=== PATIENT | male | born 1940 | race Caucasian/White ===

== ENCOUNTER 2018-01-08 12:24 | Inpatient (IN) | payer MEDICARE, BC ==
[~2018-01-08] VITALS: Ht 177.8 cm; Wt 92.7 kg
[2018-01-08] VITALS (9 sets, daily range): BP systolic 146–158; BP diastolic 50–56; PULSE 65–80; RESP 18; TEMP 96.1; O2SAT 94–100
[~2018-01-08 12:24] MED LIST: LIDOCAINE HCL 1% PF 5 ML SYRINGE OTHER ONE; PHENYLEPHRINE HCL 10 MG/ML VIAL IV ONE; PROPOFOL 200 MG/20 ML AMP IV ONE; VECURONIUM BROMIDE 20 MG VIAL IV ONE
[2018-01-08 12:43] LABS: AUTOMATED NEUTROPHIL # 9.2 TH/MM3 (1.8-7.7); BASOPHIL # 0.1 TH/MM3 (0-0.2); BASOPHIL % 0.6 % (0.0-2.0); EOSINOPHIL # 0.1 TH/MM3 (0-0.4); EOSINOPHIL % 1.1 % (0.0-4.0); HEMOGLOBIN 10.5 GM/DL (13.0-17.0); LYMPH % 7.8 % (9.0-44.0); LYMPHOCYTE # 0.9 TH/MM3 (1.0-4.8); MEAN CELL VOLUME 82.1 FL (80.0-100.0); MEAN CORPUSCULAR HEMOGLOBIN 26.9 PG (27.0-34.0); MEAN CORPUSCULAR HGB CONC 32.8 % (32.0-36.0); MEAN PLATELET VOLUME 9.3 FL (7.0-11.0); MONO % 7.1 % (0.0-8.0); MONOCYTE # 0.8 TH/MM3 (0-0.9); NEUT % 83.4 % (16.0-70.0); PLATELET COUNT 64 TH/MM3 (150-450); RED CELL DISTRIBUTION WIDTH 14.7 % (11.6-17.2)
[2018-01-08] MEDS ORDERED: MANNITOL INJ 100 ML ONE (12:44)
[2018-01-08] MEDS ORDERED: MANNITOL 12.5 GM/50 ML VIAL IV ONE ×2 (12:45→16:30)
[2018-01-08] MEDS ORDERED: SODIUM CHLOR 0.9% 1000 ML INJ 1,000 ML IV SCH (12:47)
--- NOTE | 2018-01-08 12:52 | RADRPT ---
EXAM DATE/TIME: 01/08/2018 12:26 [facility] COMPARISON: No previous studies available for comparison. INDICATIONS : Trauma alert. Fall. MEDICAL HISTORY : Unobtainable. SURGICAL HISTORY : Unobtainable. ENCOUNTER: Initial ACUITY: 1 day PAIN SCORE: Non-responsive. LOCATION: Bilateral chest FINDINGS: Patchy consolidation seen of both lungs, most dense at the right base. There is right-sided volume lo ss. A small right pleural effusion is likely. I don't see a pneumothorax on either side. There is mild cardiomegaly. Endotracheal tube tip is approximately 4 cm above the erik. No perceptible acute fracture. There is an old mid shaft fracture of the left clavicle. CONCLUSION: Bilateral infiltrates. Right-sided volume loss. Small pleural effusion on the right. No pneumothorax seen. Orlando Bradley MD on January 08, 2018 at 12:50 Board Certified Radiologist. This report was verified electronically.
[2018-01-08 12:55] LABS: INTERNATIONAL NORMALIZED RATIO 2.4 RATIO; PROTHROMBIN TIME - PATIENT 24.4 SEC (9.8-11.6)
[2018-01-08] MEDS ORDERED: THROMBIN (TOPICAL) 5,000 UNIT VIAL ONE (12:55)
[2018-01-08] MEDS ORDERED: ceFAZolin INJ 1,000 MG VIAL ONE (12:55)
[2018-01-08] MEDS ORDERED: LIDOCAINE 1%/EPINEPHrine 1:100,000 SOLN 30 ML VIAL ONE (12:55)
[2018-01-08] MEDS ORDERED: levETIRAcetam 500 MG/5 ML VIAL IV ONE (12:56)
[2018-01-08] MEDS ORDERED: GELFOAM SIZE 100 ONE (12:56)
[2018-01-08] MEDS ORDERED: GENTAMICIN SULFATE 80 MG/2 ML VIAL ONE (12:59)
[2018-01-08] MEDS ORDERED: MISCELLANEOUS NURSING INFORMATION XX SCH (13:00)
[2018-01-08] MEDS ORDERED: PROPOFOL 1000 MG/100 ML INJ 100 ML IV PRN (13:00)
[2018-01-08] MEDS ORDERED: ENALAPRILAT 1.25 MG/ML VIAL IV PUSH PRN (13:00)
[2018-01-08] MEDS ORDERED: SODIUM CHLORIDE 0.9% FLUSH 10 ML FLUSH IV FLUSH PRN (13:00)
[2018-01-08] MEDS ORDERED: MAGNESIUM HYDROXIDE SUSP 30 ML CUP PO PRN (13:00)
[2018-01-08] MEDS ORDERED: CHLORHEXIDINE GLUCONATE 2 % 1 PACK (2 CLOTHS) TOP PRN (13:00)
[2018-01-08] MEDS ORDERED: ONDANSETRON HCL 4 MG/2 ML VIAL IV PUSH PRN ×2 (13:00→14:30)
--- NOTE | 2018-01-08 13:02 | HHI.HP ---
HPI Service Critical Care Medicine Primary Care Physician Unknown Admission Diagnosis intracranial bleed Diagnosis: Chief Complaint: Unresponsive Travel History International Travel<30 Days: No Contact w/Intl Traveler <30 Da: No Traveled to Known Affected Are: No History of Present Illness 70-year-old gentleman who has some sort of cancer history was found wandering the house for a few hours by his . She said earlier in the morning he told her he could not walk the dog because he had fallen so he went in to lie down. She called 911 when he went to bed and did not wake up. On arrival per EMS he was agonal breathing they intubated him and took him to [facility]. At [facility] they saw a left periorbital hematoma, called a trauma alert and sent him to [place]. Patient arrived immobilized on a transport board with cervical collar in place he was intubated with a [place] Coma Scale of 3T on propofol. Review of Systems ROS Limitations: Intubated Past Family Social History Allergies: Coded Allergies: No Allergy Information Available (Unverified , 01/08/18) Past Medical History Unobtainable due to the patient's condition. 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 Past Surgical History Unobtainable due to the patient's condition. According to EMS the is a very poor historian. Reported Medications Unobtainable due to the patient's condition. According to EMS the is a very poor historian but states he does take blood thinners. Family History Unobtainable due to the patient's condition. Social History Unobtainable due to the patient's condition. Physical Exam Physical Exam Well proportioned 70-year-old gentleman intubated and sedated with a [place] Coma Scale of 3T on 20 of propofol Calvarium is intact, left periorbital ecchymosis pupils are equal bilaterally at 2 mm sclera is nonicteric conjunctiva is pink Neck is soft trachea is midline there is no cervical step-off to palpation Lungs are clear to auscultation bilaterally, no bony crepitus to palpation of his chest wall or clavicles Heart regular rate and rhythm Abdomen soft, nontender nondistended Pelvis stable to manipulation, nontender, femoral pulses palpable bilaterally No clubbing cyanosis or edema distal pulses are palpable bilaterally Skin has various levels of ecchymotic areas, mostly old appearing Neurologically the patient is a [place] Coma Scale of 3T Mood and affect are unassessable Laboratory Laboratory Tests Test 01/08/18 12:30 White Blood Count 11.0 Red Blood Count 3.90 Hemoglobin 10.5 Bedside Hemoglobin 10.9 Hematocrit 32.0 Bedside Hematocrit 32.0 Mean Corpuscular Volume 82.1 Mean Corpuscular Hemoglobin 26.9 Mean Corpuscular Hemoglobin Concent 32.8 Red Cell Distribution Width 14.7 Platelet Count 64 Mean Platelet Volume 9.3 Neutrophils (%) (Auto) 83.4 Lymphocytes (%) (Auto) 7.8 Monocytes (%) (Auto) 7.1 Eosinophils (%) (Auto) 1.1 Basophils (%) (Auto) 0.6 Neutrophils # (Auto) 9.2 Lymphocytes # (Auto) 0.9 Monocytes # (Auto) 0.8 Eosinophils # (Auto) 0.1 Basophils # (Auto) 0.1 CBC Comment AUTO DIFF Prothrombin Time 24.4 Prothromb Time International Ratio 2.4 Activated Partial Thromboplast Time 42.9 Bedside Sodium 137 Bedside Potassium 4.3 Bedside Chloride 103 Bedside Blood Urea Nitrogen 25 Bedside Creatinine 1.2 Bedside Glucose 246 Result Diagram: 01/08/18 1230 Caprini VTE Risk Assessment Caprini VTE Risk Assessment: Mod/High Risk (score >= 2) VTE Pharm Contraindication: Hemorrhage Caprini Risk Assessment Model Point Value = 1 Point Value = 2 Point Value = 3 Point Value = 5 Age 41-60 Minor surgery BMI > 25 kg/m2 Swollen legs Varicose veins or History of unexplained or recurrent spontaneous Oral contraceptives or hormone replacement Sepsis (< 1 month) Serious lung disease, including pneumonia (< 1 month) Abnormal pulmonary function Acute myocardial infarction Congestive heart failure (< 1 month) History of inflammatory bowel disease Medical patient at bed rest Age 61-74 Arthroscopic surgery Major open surgery (> 45 min) Laparoscopic surgery (> 45 min) Malignancy Confined to bed (> 72 hours) Immobilizing plaster cast Central venous access Age >= 75 History of VTE Family history of VTE Factor V Leiden Prothrombin [id number] Lupus anticoagulant Anticardiolipin antibodies Elevated serum homocysteine Heparin-induced thrombocytopenia Other congenital or acquired thrombophilia Stroke (< 1 month) Elective arthroplasty Hip, pelvis, or leg fracture Acute spinal cord injury (< 1 month) Prophylaxis Regimen Total Risk Factor Score Risk Level Prophylaxis Regimen 0-1 Low Early ambulation 2 Moderate Order ONE of the following: *Sequential Compression Device (SCD) *Heparin 5000 units SQ BID 3-4 Higher Order ONE of the following medications: *Heparin 5000 units SQ TID *Enoxaparin/Lovenox 40 mg SQ daily (WT < 150 kg, CrCl > 30 mL/min) *Enoxaparin/Lovenox 30 mg SQ daily (WT < 150 kg, CrCl > 10-29 mL/min) *Enoxaparin/Lovenox 30 mg SQ BID (WT < 150 kg, CrCl > 30 mL/min) AND/OR *Sequential Compression Device (SCD) 5 or more Highest Order ONE of the following medications: *Heparin 5000 units SQ TID (Preferred with Epidurals) *Enoxaparin/Lovenox 40 mg SQ daily (WT < 150 kg, CrCl > 30 mL/min) *Enoxaparin/Lovenox 30 mg SQ daily (WT < 150 kg, CrCl > 10-29 mL/min) *Enoxaparin/Lovenox 30 mg SQ BID (WT < 150 kg, CrCl > 30 mL/min) AND *Sequential Compression Device (SCD) Assessment and Plan Assessment and Plan Large left occipital hemorrhagic stroke followed by a subsequent apparent traumatic left subdural hematoma -Patient be admitted to the trauma service for serial neurologic exams and continuous hemodynamic monitoring after surgery -Dr. Rivera was present in CT and is taking the patient emergently to the operating room -We will consult the surgical solderer electronic to assist with management Patient is critically ill with a very poor prognosis for meaningful recovery based on his CT scan and his unknown anticoagulation status Ike Ruiz MD Jan 08, 2018 13:02
[2018-01-08] MEDS ORDERED: PHYTONADIONE INJ 10 MG in SODIUM CHLORIDE 0.9% INJ 50 ML IV ONE (13:15)
[2018-01-08 13:24] LABS: HELMET CELLS OCC (NORMAL); KERATOCYTES OCC (NORMAL); OVALOCYTES 1+ (NORMAL)
[2018-01-08] MEDS ORDERED: PROTHROMBIN COMPLEX CONC INJ 2,000 UNITS in SYRINGE/BAG 1 EA IV ONE (13:30)
--- NOTE | 2018-01-08 13:31 | RADRPT ---
EXAM DATE/TIME: 01/08/2018 12:34 [facility] COMPARISON: No previous studies available for comparison. INDICATIONS : Trauma Alert, fall. RADIATION DOSE: 66.34 CTDIvol (mGy) MEDICAL HISTORY : Non-responsive. SURGICAL HISTORY : Non-responsive. ENCOUNTER: Initial ACUITY: 1 day PAIN SCALE: 10/10 LOCATION: cranial TECHNIQUE: Multiple contiguous axial images were obtained of the head. Using automated exposure control and adj ustment of the mA and/or kV according to patient size, radiation dose was kept as low as reasonably a chievable to obtain optimal diagnostic quality images. DICOM format image data is available electro nically for review and comparison. FINDINGS: The examination demonstrates a 1.5 cm extra-axial hemorrhage surrounding the left frontal and parieta l cortex. There is significant mass effect associated with this with approximately 7 mm of left to ri ght falcine shift. There is a small amount hemorrhage layering along the interhemispheric fissure and just anterior to the right frontal cortex. There is diffuse edema throughout the left cerebral hemis phere with effacement of the sulci and gyri. The examination also demonstrates a 4.0 x 2.4 cm area of intraparenchymal hemorrhage within the left occipital cortex. Imaging through the posterior fossa demonstrates hemorrhage layering along the tentorium. There are e dematous changes throughout the cerebellum. The examination demonstrates effacement of the perimesencephalic cisterns with transtentorial herniat ion on the left. The osseous structures of the skull are intact. There is a large hematoma above the left orbit. CONCLUSION: 1. Grossly abnormal examination demonstrating a 4.0 x 2.4 cm interparenchymal hemorrhage within the l eft the occipital cortex. There is a 1.5 cm subdural hemorrhage along the entire left hemisphere. The re is 7 mm of left to right falcine shift and diffuse edema throughout the left hemisphere as well. T here is effacement of the perimesencephalic cisterns consistent with transtentorial herniation. There are edematous changes evident within the cerebellum and brainstem. Findings were discussed with Dr. Thornton. Maxi Ann MD on January 08, 2018 at 13:18 Board Certified Radiologist. This report was verified electronically.
--- NOTE | 2018-01-08 13:32 | PD.CONS ---
[facility] Service Neurosurgery Consult Requested By Trauma surgeon Reason for Consult Trauma alert. Severe traumatic brain injury Primary Care Physician Unknown History of Present Illness This is a 70-year-old male who has history of cancer with bone matastases, history was found wandering the house confused, by his . She said earlier in the morning he told her he could not walk the dog because he had fallen so he went in to lie down. The patient was sleeping and became unresponsive. She was unable to wake him up. She called 911 when he did not wake up. On arrival per EMS he had agonal breathing they intubated him in the field. No seizure activity reported. No tongue biting. No tonic-clonic movement seen. No incontinence of stool or urine. They transported him immediately to [facility]. At [facility] they saw a left periorbital hematoma, called a trauma alert and sent him to [place]. Patient arrived immobilized on a transport board with cervical collar in place he was intubated with a [place] Coma Scale of 3T on propofol. CT of the brain showed large left subdural hematoma, left occipital intraparenchymal hemorrhage with 7 mm midline shift. The patient was coagulopathic, with an INR of 2.5, and a platelet count of 60,000. An emergency neurosurgical consultation was requested Caprini VTE Risk Assessment Caprini VTE Risk Assessment: Mod/High Risk (score >= 2) VTE Pharm Contraindication: Hemorrhage Caprini Risk Assessment Model Point Value = 1 Point Value = 2 Point Value = 3 Point Value = 5 Age 41-60 Minor surgery BMI > 25 kg/m2 Swollen legs Varicose veins or History of unexplained or recurrent spontaneous Oral contraceptives or hormone replacement Sepsis (< 1 month) Serious lung disease, including pneumonia (< 1 month) Abnormal pulmonary function Acute myocardial infarction Congestive heart failure (< 1 month) History of inflammatory bowel disease Medical patient at bed rest Age 61-74 Arthroscopic surgery Major open surgery (> 45 min) Laparoscopic surgery (> 45 min) Malignancy Confined to bed (> 72 hours) Immobilizing plaster cast Central venous access Age >= 75 History of VTE Family history of VTE Factor V Leiden Prothrombin [id number] Lupus anticoagulant Anticardiolipin antibodies Elevated serum homocysteine Heparin-induced thrombocytopenia Other congenital or acquired thrombophilia Stroke (< 1 month) Elective arthroplasty Hip, pelvis, or leg fracture Acute spinal cord injury (< 1 month) Prophylaxis Regimen Total Risk Factor Score Risk Level Prophylaxis Regimen 0-1 Low Early ambulation 2 Moderate Order ONE of the following: *Sequential Compression Device (SCD) *Heparin 5000 units SQ BID 3-4 Higher Order ONE of the following medications: *Heparin 5000 units SQ TID *Enoxaparin/Lovenox 40 mg SQ daily (WT < 150 kg, CrCl > 30 mL/min) *Enoxaparin/Lovenox 30 mg SQ daily (WT < 150 kg, CrCl > 10-29 mL/min) *Enoxaparin/Lovenox 30 mg SQ BID (WT < 150 kg, CrCl > 30 mL/min) AND/OR *Sequential Compression Device (SCD) 5 or more Highest Order ONE of the following medications: *Heparin 5000 units SQ TID (Preferred with Epidurals) *Enoxaparin/Lovenox 40 mg SQ daily (WT < 150 kg, CrCl > 30 mL/min) *Enoxaparin/Lovenox 30 mg SQ daily (WT < 150 kg, CrCl > 10-29 mL/min) *Enoxaparin/Lovenox 30 mg SQ BID (WT < 150 kg, CrCl > 30 mL/min) AND *Sequential Compression Device (SCD) Assessment and Plan Assessment and Plan Large left occipital hemorrhagic stroke followed by a subsequent apparent traumatic left subdural hematoma -Patient be admitted to the trauma service for serial neurologic exams and continuous hemodynamic monitoring after surgery -Dr. Rivera was present in CT and is taking the patient emergently to the operating room -We will consult the surgical carbon paper machine operator to assist with management Patient is critically ill with a very poor prognosis for meaningful recovery based on his CT scan and his unknown anticoagulation status Review of Systems Unobtainable due to the patient's condition. ROS Limitations: Clinical Condition, Intubated, Altered Mental Status, Unresponsive Past Family Social History Allergies: Coded Allergies: No Allergy Information Available (Unverified , 01/08/18) Past Medical History Unobtainable due to the patient's condition. 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 Past Surgical History Unobtainable due to the patient's condition. Reported Medications Unobtainable due to the patient's condition. Active Ordered Medications Current Medications Mannitol (Mannitol Inj) 25 gm ONCE ONCE IV ; Start 01/08/18 at 12:45; Stop at 12:46; Status DC Mannitol 100 ml @ As Directed STK-MED ONCE .ROUTE ; Start 01/08/18 at 12:44; Stop 01/08/18 at 12:45; Status DC Sodium Chloride 1,000 ml @ 125 mls/hr Q8H IV ; Start 01/08/18 at 12:47; Stop 01/08/18 at 14:59; Status DC Sodium Chloride (NS Flush) 2 ml UNSCH PRN IV FLUSH FLUSH AFTER USING IV ACCESS ; Start 01/08/18 at 13:00; Stop 01/10/18 at 16:27; Status DC Enalaprilat (Vasotec Inj) 1.25 mg Q8H PRN IV PUSH SBP>180, DBP>95; Start at 13:00; Stop 01/10/18 at 16:27; Status DC Ondansetron HCl (Zofran Inj) 4 mg Q6H PRN IV PUSH NAUSEA OR VOMITING; Start 01/08/18 at 13:00; Stop 01/08/18 at 15:03; Status DC Docusate Sodium (Colace) 100 mg BID PO Last administered on 01/10/18at 08:57; Start 01/08/18 at 21:00; Stop 01/10/18 at 16:27; Status DC Magnesium Hydroxide (Milk Of Magnesia Liq) 30 ml Q6H PRN PO CONSTIPATION; Start 01/08/18 at 13:00; Stop 01/10/18 at 16:27; Status DC Miscellaneous Information 1 [id number] ; Start 01/08/18 at 13:00; Stop 01/10/18 at 16:27; Status DC Chlorhexidine Gluconate (Chlorhexidine 2% Cloth) 3 pack Taper DAILY@04 TOP ; Start 01/09/18 at 04:00; Stop 01/10/18 at 16:27; Status DC Chlorhexidine Gluconate (Chlorhexidine 2% Cloth) 3 pack UNSCH PRN TOP HYGIENIC CARE; Start 01/08/18 at 13:00; Stop 01/10/18 at 16:27; Status DC Propofol 100 ml @ 0 mls/hr TITRATE PRN IV SEDATION; Start 01/08/18 at 13:00; Stop 01/08/18 at 15:42; Status DC Fentanyl Citrate (fentaNYL INJ) 100 mcg Q1H PRN IV PUSH PAIN SCALE 1 TO 10; Start 01/08/18 at 13:00; Stop 01/10/18 at 16:27; Status DC Lidocaine/ Epinephrine (Xylocaine-Epi 1%-1:100,000 Inj) 30 ml STK-MED ONCE .ROUTE Last administered on 01/08/18 13:45; Start 01/08/18 at 12:55; Stop at 12:56; Status DC Cefazolin Sodium (Ancef Inj) 2,000 mg STK-MED ONCE .ROUTE Last administered on 01/08/18 13:16; Start 01/08/18 at 12:55; Stop 01/08/18 at 12:56; Status DC Thrombin (Thrombin Top Soln) 10,000 units STK-MED ONCE .ROUTE Last administered on 01/08/18 13:45; Start 01/08/18 at 12:55; Stop 01/08/18 at 12:56; Status DC Gelatin (Gelfoam 100 Top) 1 foam STK-MED ONCE .ROUTE Last administered on 13:45; Start 01/08/18 at 12:56; Stop 01/08/18 at 12:57; Status DC Levetriacetam (Keppra Inj) 1,000 mg STK-MED ONCE IV Last administered on 12:59; Start 01/08/18 at 12:56; Stop 01/08/18 at 12:57; Status DC Gentamicin Sulfate (Gentamicin Inj) 240 mg STK-MED ONCE .ROUTE Last administered on 01/08/18 13:45; Start 01/08/18 at 12:59; Stop 01/08/18 at 13:00; Status DC Phytonadione 10 mg/Sodium Chloride 51 ml @ 100 mls/hr ONCE ONCE IV ; Start 01/08/18 at 13:15; Stop 01/08/18 at 13:45; Status DC Prothrombin Complex Concent (Human) 2000 units/Syringe / Bag 0 ml @ 500 mls/hr ONCE ONCE IV ; Start 01/08/18 at 13:30; Stop 01/08/18 at 13:31; Status DC Calcium Chloride (Calcium Chloride Inj) 1 gm STK-MED ONCE .ROUTE ; Start at 14:10; Stop 01/08/18 at 14:11; Status DC Potassium Chloride/Sodium Chloride 1,000 ml @ 100 mls/hr Q10H IV Last administered on 01/09/18at 00:29; Start 01/08/18 at 14:29; Stop 01/09/18 at 09:44; Status DC Cefazolin Sodium 2000 mg/Sodium Chloride 100 ml @ 100 mls/hr Q8H IV Last administered on 01/09/18at 12:07; Start 01/08/18 at 21:00; Stop 01/09/18 at 13:59; Status DC Levetriacetam 500 mg/Sodium Chloride 105 ml @ 400 mls/hr Q12H IV Last administered on 01/10/18at 02:35; Start 01/08/18 at 15:00; Stop 01/10/18 at 16:27; Status DC Bisacodyl (Dulcolax Supp) 10 mg DAILY PRN RECTAL CONSTIPATION; Start 01/08/18 at 14:30; Stop 01/10/18 at 16:27; Status DC Docusate Sodium (Colace) 100 mg BID PO ; Start 01/08/18 at 21:00; Stop 01/08/18 at 21:00; Status DC Pantoprazole Sodium (Protonix) 40 mg DAILY PO Last administered on 01/09/18at 08: 13; Start 01/09/18 at 09:00; Stop 01/10/18 at 16:27; Status DC Pantoprazole Sodium (Protonix Inj) 40 mg DAILY IVP ; Start 01/09/18 at 09:00; Stop 01/09/18 at 09:00; Status DC Ondansetron HCl (Zofran Inj) 4 mg Q6H PRN IV PUSH NAUSEA OR VOMITING; Start 01/08/18 at 14:30; Stop 01/10/18 at 16:27; Status DC Calcium Gluconate (Calcium Gluconate Inj) 1 gm UNSCH PRN IV SEE LABEL COMMENTS ; Start 01/08/18 at 14:30; Stop 01/08/18 at 15:12; Status DC Potassium Chloride 100 ml @ 50 mls/hr UNSCH PRN IV POTASSIUM LESS THAN 4; Start 01/08/18 at 14:30; Stop 01/10/18 at 16:27; Status DC Magnesium Sulfate 4 gm/Sodium Chloride 108 ml @ 108 mls/hr UNSCH PRN IV MAGNESIUM LESS THAN 2; Start 01/08/18 at 14:30; Stop 01/10/18 at 16:27; Status DC Acetaminophen/ Hydrocodone Bitart ([place] 10-325 Mg) 1 tab Q4H PRN PO PAIN SCALE 1 TO 5; Start 01/08/18 at 14:30; Stop 01/10/18 at 16:27; Status DC Acetaminophen/ Hydrocodone Bitart (Culver 10-325 Mg) 2 tab Q4H PRN PO PAIN SCALE 6 TO 10; Start 01/08/18 at 14:30; Stop 01/10/18 at 16:27; Status DC Morphine Sulfate (Morphine Inj) 2 mg Q2H PRN IV PUSH PAIN 1-6 IF NOT TOLERATING PO; Start 01/08/18 at 14:30; Stop 01/10/18 at 16:27; Status DC Morphine Sulfate (Morphine Inj) 4 mg Q2H PRN IV PUSH PAIN 7-10 IF NOT TOLERATING PO; Start 01/08/18 at 14:30; Stop 01/10/18 at 16:27; Status DC Acetaminophen (Tylenol) 650 mg Q4H PRN PO TEMPERATURE > 101.5 F; Start 01/08/18 at 14:30; Stop 01/10/18 at 16:27; Status DC Calcium Gluconate 1 gm/Sodium Chloride 110 ml @ 110 mls/hr UNSCH PRN IV SEE LABEL COMMENTS; Start 01/08/18 at 15:15; Stop 01/10/18 at 16:27; Status DC Miscellaneous Information PHARMACY NEEDS HT/ WT... Q15M .XX ; Start 01/08/18 at 15:00; Stop 01/08/18 at 15:53; Status DC Propofol 100 ml @ As Directed STK-MED ONCE .ROUTE ; Start 01/08/18 at 15:28; Stop 01/08/18 at 15:42; Status DC Propofol 100 ml @ 2.52 mls/hr TITRATE PRN IV SEDATION Last administered on 01/10at 09:01; Start 01/08/18 at 15:45; Stop 01/10/18 at 16:27; Status DC Nicardipine HCl 25 mg/Sodium Chloride 250 ml @ 50 mls/hr TITRATE PRN IV Blood Pressure Management; Start 01/08/18 at 16:00; Stop 01/08/18 at 23:06; Status DC Nicardipine HCl (Cardene Inj) 25 mg STK-MED ONCE .ROUTE Last administered on 01/08/18at 15:49; Start 01/08/18 at 15:49; Stop 01/08/18 at 15:50; Status DC Miscellaneous Information ALL NURSING DEPARTME... UNSCH PRN .XX SEE LABEL COMMENTS; Start 01/08/18 at 15:25; Stop 01/09/18 at 15:24; Status DC Mannitol (Mannitol Inj) 25 gm NOW ONCE IV Last administered on 01/08/18at 16:30 ; Start 01/08/18 at 16:30; Stop 01/08/18 at 16:31; Status DC Sodium Chloride 500 ml @ 35 mls/hr CONTINUOUS IV Last administered on at 14:24; Start 01/08/18 at 16:30; Stop 01/10/18 at 10:22; Status DC Sodium Chloride 120 meq/Syringe / Bag 30 ml @ 60 mls/hr ONCE ONCE IV Last administered on 01/08/18at 20:33; Start 01/08/18 at 21:00; Stop 01/08/18 at 21:29; Status DC Fentanyl Citrate 250 ml @ 5 mls/hr TITRATE PRN IV Sedation; Start 01/08/18 at 20 :15; Stop 01/08/18 at 23:07; Status DC Pantoprazole Sodium (Protonix Inj) 40 mg DAILY IVP Last administered on at 08:57; Start 01/09/18 at 09:00; Stop 01/10/18 at 16:27; Status DC Mannitol (Mannitol Inj) 25 gm Q6H IV Last administered on 01/10/18at 05:13; Start 01/08/18 at 22:00; Stop 01/10/18 at 16:27; Status DC Nicardipine HCl 25 mg/Sodium Chloride 250 ml @ 50 mls/hr TITRATE PRN IV Blood pressure management; Start 01/08/18 at 21:15; Stop 01/10/18 at 16:27; Status DC Chlorhexidine Gluconate (Peridex 0.12% Liq) 15 ml BID@08,20 MT Last administered on 01/10/18at 08:33; Start 01/09/18 at 08:00; Stop 01/10/18 at 16:27; Status DC Sodium Chloride 500 ml @ 40 mls/hr UNSCH PRN IV ICP > 20 Last administered on 01/10/18at 02:37; Start 01/08/18 at 21:15; Stop 01/10/18 at 16:27; Status DC Fentanyl Citrate 250 ml @ 5 mls/hr TITRATE PRN IV Sedation Last administered on 01/10/18at 08:57; Start 01/08/18 at 21:15; Stop 01/10/18 at 16:27; Status DC Norepinephrine Bitartrate (Levophed Inj) 4 mg STK-MED ONCE .ROUTE ; Start at 22:29; Stop 01/08/18 at 22:30; Status DC Norepinephrine Bitartrate 4 mg/ Sodium Chloride 250 ml @ 7.5 mls/hr TITRATE PRN IV Maintain CPP > 70 mmHg Last administered on 01/10/18at 13:54; Start at 23:15; Stop 01/10/18 at 16:27; Status DC Atropine Sulfate (Atropine Inj) 1 mg STK-MED ONCE .ROUTE ; Start 01/09/18 at 08: 19; Stop 01/09/18 at 08:20; Status DC Albumin Human 500 ml @ 250 mls/hr ONCE ONCE IV Last administered on 01/10/18at 05:12; Start 01/10/18 at 05:15; Stop 01/10/18 at 07:14; Status DC Family History Unobtainable due to the patient's condition. Social History Unobtainable due to the patient's condition. Physical Exam Vital Signs Vital Signs Date Time Temp Pulse Resp B/P (MAP) Pulse Ox O2 Delivery O2 Flow Rate FiO2 01/08/18 13:10 94 100 01/08/18 13:08 94 100 01/08/18 13:07 94 15.00 Physical Exam Well proportioned 70-year-old gentleman intubated and sedated with a [place] Coma Scale of 3T on propofol drip There is left periorbital ecchymosis Neck is soft trachea is midline there is no cervical step-off to palpation Lungs are clear bilaterally Heart regular rate and rhythm Abdomen soft, nontender nondistended Skin has various levels of ecchymotic areas, mostly old appearing Cranial Nerves: Pupils equal, 2mm round, minimally reactive to light. Eyes appear conjugated. There was no nystagmus, no papilledema. Face musculature appeared symmetrical at rest. Face sensation, olfaction, visual levine, and hearing cannot be adequately assessed due to his neurological condition. The patient has a corneal reflex. He has no gag reflex. The sternocleidomastoid and trapezius are symmetrical. Motor: His muscle tone and bulk are normal. No response to pain Reflexes: Deep tendon reflexes are symmetrical Sensory: On examination there is no response to pain. Cerebellar: Examination cannot be adequately assessed due to the patient's neurological condition. Laboratory Laboratory Tests Test 01/08/18 12:30 White Blood Count 11.0 Red Blood Count 3.90 Hemoglobin 10.5 Bedside Hemoglobin 10.9 Hematocrit 32.0 Bedside Hematocrit 32.0 Mean Corpuscular Volume 82.1 Mean Corpuscular Hemoglobin 26.9 Mean Corpuscular Hemoglobin Concent 32.8 Red Cell Distribution Width 14.7 Platelet Count 64 Mean Platelet Volume 9.3 Neutrophils (%) (Auto) 83.4 Lymphocytes (%) (Auto) 7.8 Monocytes (%) (Auto) 7.1 Eosinophils (%) (Auto) 1.1 Basophils (%) (Auto) 0.6 Neutrophils # (Auto) 9.2 Lymphocytes # (Auto) 0.9 Monocytes # (Auto) 0.8 Eosinophils # (Auto) 0.1 Basophils # (Auto) 0.1 CBC Comment AUTO DIFF Differential Comment AUTO DIFF CONFIRMED Platelet Estimate LOW Platelet Morphology Comment ENLARGED Ovalocytes 1+ Helmet Cells OCC Keratocytes OCC Prothrombin Time 24.4 Prothromb Time International Ratio 2.4 Activated Partial Thromboplast Time 42.9 Bedside Sodium 137 Bedside Potassium 4.3 Bedside Chloride 103 Bedside Blood Urea Nitrogen 25 Bedside Creatinine 1.2 Bedside Glucose 246 Result Diagram: 01/08/18 1230 Attending Statement 77-year-old male with large left occipetal intracerebral hemorrhage, ICH score 2 , with associated left subdural hemorrhage with 7mm midline shift and malignant cerebral edema. I reviewed his radiological studies Maxillofacial CT 4/5/18 1226 Signed Impressions: Service Date/Time: January 12:34 - CONCLUSION: 1. There is a large hematoma evident surrounding and involving the left orbit. 2. No acute facial fracture identified. Maxi Ann MD Head CT 01/08/181225 Signed Impressions: Service Date/Time: January 12:34 - CONCLUSION: 1. Grossly abnormal examination demonstrating a 4.0 x 2.4 cm interparenchymal hemorrhage within the left the occipital cortex. There is a 1.5 cm subdural hemorrhage along the entire left hemisphere. There is 7 mm of left to right falcine shift and diffuse edema throughout the left hemisphere as well. There is effacement of the perimesencephalic cisterns consistent with transtentorial herniation. There are edematous changes evident within the cerebellum and brainstem. Findings were discussed with Dr. Thornton. Maxi Ann MD Chest X-Ray 01/08/181225 Signed Impressions: Service Date/Time: January 12:26 - CONCLUSION: Bilateral infiltrates. Right-sided volume loss. Small pleural effusion on the right. No pneumothorax seen. Orlando Bradley MD Cervical Spine CT 01/08/181225 Signed Impressions: Service Date/Time: January 12:34 - CONCLUSION: 1. Degenerative changes throughout cervical spine as above. No acute cervical fracture identified. Maxi Ann MD The patient is acutely very critically ill. Severe traumatic brain injury, neuro checks in a serial fashion. An emergency decompressive craniectomy is indicated in attempt to save his life. A follow-up CT of the head will be obtained in 24-48 hours. Placement of an intracranial pressure monitor via ventriculostomy is indicated as recommended by the [place] [employer] of neurological surgeons. This patient is in a truly critical condition at risk for neurological deterioration. Hyperosmolar treatment with hyperosmotic solutions Keppra for seizure prophylaxis Monitor end tidal PCO2 Full mechanical ventilation. Aggressive pulmonary toilette, nasotracheal suction , and breathing treatments with nebulizers. Nutrition. NPO Renal. monitor closely urine output, BUN and creatinine [place] in place. Monitor intake and output. Monitor electrolyte. Replace electrolytes as indicate per ICU electrolyte replacement protocol. HEME: Monitor CBC ENDO: Acute hyperglycemia Monitor glucose every 6 hours and administer low-dose insulin sliding scale as needed Again, this patient is critically ill with severe TBI requiring emergent therapy for intracerebral hypertension to prevent herniation, DVT prophylaxis Point Value = 1 Point Value = 2 Point Value = 3 Point Value = 5 Age 41-60 Minor surgery BMI > 25 kg/m2 Swollen legs Varicose veins or History of unexplained or recurrent spontaneous Oral contraceptives or hormone replacement Sepsis (< 1 month) Serious lung disease, including pneumonia (< 1 month) Abnormal pulmonary function Acute myocardial infarction Congestive heart failure (< 1 month) History of inflammatory bowel disease Medical patient at bed rest Age 61-74 Arthroscopic surgery Major open surgery (> 45 min) Laparoscopic surgery (> 45 min) Malignancy Confined to bed (> 72 hours) Immobilizing plaster cast Central venous access Age >= 75 History of VTE Family history of VTE Factor V Leiden Prothrombin [id number] Lupus anticoagulant Anticardiolipin antibodies Elevated serum homocysteine Heparin-induced thrombocytopenia Other congenital or acquired thrombophilia Stroke (< 1 month) Elective arthroplasty Hip, pelvis, or leg fracture Acute spinal cord injury (< 1 month) Quirino corral and SCD's for DVT prophylaxis. Further recommendations will depend on his clinical evaluation and radiological studies Yash Rivera MD Jan 08, 2018 13:32
--- NOTE | 2018-01-08 13:33 | RADRPT ---
EXAM DATE/TIME: 01/08/2018 12:34 [place] COMPARISON: CT BRAIN W/O CONTRAST, January 08, 2018, 12:34. INDICATIONS : Trauma Alert, fall. RADIATION DOSE: 20.96 CTDIvol (mGy) MEDICAL HISTORY : Non-responsive. SURGICAL HISTORY : Non-responsive. ENCOUNTER: Initial ACUITY: 1 day PAIN SCALE: Non-responsive LOCATION: neck TECHNIQUE: Volumetric scanning of the cervical spine was performed. Multiplanar reconstructions in the sagittal, coronal and oblique axial planes were performed. Using automated exposure control and adjustment o f the mA and/or kV according to patient size, radiation dose was kept as low as reasonably achievable to obtain optimal diagnostic quality images. DICOM format image data is available electronically f or review and comparison. FINDINGS: Thin section axial imaging of the cervical spine was performed. Sagittal and coronal imaging demonstrate adequate alignment of the vertebral bodies. There are degene rative changes throughout the cervical spine. No acute fracture is identified. C1/2: No acute bony abnormality identified. C2/3: There is a degenerated disc and mild facet arthritis bilaterally. There is mild bony foraminal narrow ing on the left. The foramen on the right in the thecal space are adequate. C3/4: There is a degenerated disc. There is osteophytic ridging from the vertebral endplates. There is mild facet arthritis bilaterally. The thecal space and foramina appear adequate. C4/5: There is a degenerated disc. There is osteophytic ridging from the vertebral endplates. The thecal sp evans and foramina are adequate. C5/6: There is a degenerated disc. There is a broad-based disc bulge and osteophytic ridging. This effaces the ventral thecal sac. There is moderate facet arthritis bilaterally. These changes result in modera te degree of spinal stenosis and bony foraminal narrowing bilaterally. C6/7: There is a degenerated disc. There is a small broad-based disc bulge and osteophytic ridging. The the jose space and foramina appear adequate. Mild facet arthritis bilaterally. C7/T1: The thecal space is adequate. The neural foramina are adequate. No significant abnormality is identif ied. There is mild facet arthritis bilaterally. CONCLUSION: 1. Degenerative changes throughout cervical spine as above. No acute cervical fracture identified. Maxi Ann MD on January 08, 2018 at 13:28 Board Certified Radiologist. This report was verified electronically.
--- NOTE | 2018-01-08 13:35 | PD ---
HPI Chief Complaint: Trauma (Alert) Time Seen by Provider: 12:43 Travel History International Travel<30 days: No Contact w/Intl Traveler<30days: No Traveled to known affect area: No History of Present Illness HPI 30-bes-zqfz-old male presents after his found him not acting right and then later found him in bed unresponsive. The ambulance team arrived and he was intubated. He had unequal pupils. They transferred him to [facility] and there he became a trauma alert and was sent emergently here. Report is that he is on blood thinners but unknown what type. He was not given any paralytics prior to arrival. History is significantly limited given clinical acuity and no family present on initial presentation. [facility] Past Medical History Medical History: Unable to Obtain Past Surgical History Surgical History: Unable to Obtain Allergies-Medications (Allergen,Severity, Reaction): Coded Allergies: No Allergy Information Available (Unverified , 01/08/18) Review of Systems ROS Limitations: Clinical Condition Physical Exam Exam Limitations: Clinical Condition Narrative General: 70 y/o patient who is intubated Skin: trauma noted to left eye with ecchymosis and swelling Eyes: Pupils 1 mm NECK: c-collar in place Cardiovascular: Regular rate and rhythm Respiratory: Clear at apices Abdomen: nondistended Neuro: Intubated and sedated Data Data Orders Orders I-Stat Profile (01/08/18 12:26) Complete Blood Count With Diff (01/08/18 12:26) Prothrombin Time / Inr (Pt) (01/08/18 12:26) Act Partial Throm Time (Ptt) (01/08/18 12:26) Type And Screen (01/08/18 12:26) Chest, Single Ap (01/08/18 12:26) Ct Brain W/O Iv Contrast(Rout) (01/08/18 12:26) Ct Cerv Spine W/O Contrast (01/08/18 12:26) Ct Facial Bones W/O Iv Cont (01/08/18 12:26) Iv Access Insert/Monitor (01/08/18 12:26) Ecg Monitoring (01/08/18 12:26) Oximetry (01/08/18 12:26) Oxygen Administration (01/08/18 12:26) Admit Order (Ed Use Only) (01/08/18 12:43) Mannitol Inj (Mannitol Inj) (01/08/18 12:45) Consult Neurosurgery (01/08/18 ) Mannitol Inj (Mannitol Inj) (01/08/18 12:44) Labs Laboratory Tests Test 01/08/18 12:30 White Blood Count 11.0 TH/MM3 Red Blood Count 3.90 MIL/MM3 Hemoglobin 10.5 GM/DL Bedside Hemoglobin 10.9 G/DL Hematocrit 32.0 % Bedside Hematocrit 32.0 % Mean Corpuscular Volume 82.1 FL Mean Corpuscular Hemoglobin 26.9 PG Mean Corpuscular Hemoglobin Concent 32.8 % Red Cell Distribution Width 14.7 % Platelet Count 64 TH/MM3 Mean Platelet Volume 9.3 FL Neutrophils (%) (Auto) 83.4 % Lymphocytes (%) (Auto) 7.8 % Monocytes (%) (Auto) 7.1 % Eosinophils (%) (Auto) 1.1 % Basophils (%) (Auto) 0.6 % Neutrophils # (Auto) 9.2 TH/MM3 Lymphocytes # (Auto) 0.9 TH/MM3 Monocytes # (Auto) 0.8 TH/MM3 Eosinophils # (Auto) 0.1 TH/MM3 Basophils # (Auto) 0.1 TH/MM3 CBC Comment AUTO DIFF Differential Comment AUTO DIFF CONFIRMED Platelet Estimate LOW Platelet Morphology Comment ENLARGED Ovalocytes 1+ Helmet Cells OCC Keratocytes OCC Prothrombin Time 24.4 SEC Prothromb Time International Ratio 2.4 RATIO Activated Partial Thromboplast Time 42.9 SEC Bedside Sodium 137 MMOL/L Bedside Potassium 4.3 MMOL/L Bedside Chloride 103 MMOL/L Bedside Blood Urea Nitrogen 25 MG/DL Bedside Creatinine 1.2 MG/DL Bedside Glucose 246 MG/DL [facility] Medical Screen Exam Complete: Yes Emergency Medical Condition: Yes Medical Record Reviewed: Yes (Discussed with EMS) Interpretation(s) CBC & BMP Diagram 01/08/18 12:30 Last 24 hours Impressions Chest X-Ray 01/08/18 1226 Signed Impressions: Service Date/Time: January 12:26 - CONCLUSION: Bilateral infiltrates. Right-sided volume loss. Small pleural effusion on the right. No pneumothorax seen. Orlando Bradley MD The chest x-ray noted IV fluids were stopped. After operating room patient will need antibiotics for possible aspiration pneumonia CT brain prelim shows large bleed with shift which was discussed with Dr. Rivera Differential Diagnosis Epidural, subdural, intraparenchymal bleed, herniation, fracture Narrative Course Patient arrived as a level 1 trauma alert. Patient is intubated. Patient with stable vitals. Patient emergently taken to CT scan and has large bleed with shift with concerns for herniation. Dr. Rivera was called and came to bedside. Mannitol ordered and he went emergently to the OR. INR resulted at 2.4. K Centra ordered and discussed with anesthesiology team While patient was in the OR. Critical Care Narrative Aggregate critical care time was 45 minutes. Time to perform other separately billable procedures was not included in the critical care time. My time did not include minutes spent treating any other patients simultaneously or on activities that did not directly contribute to the patient's treatment. The services I provided to this patient were to treat and/or prevent clinically significant deterioration that could result in: Herniation, I provided critical care services requiring my management, as noted below: Chart data review, documentation time, medication orders and management, vital sign assessments/reviewing monitor data, ordering and reviewing lab tests, ordering and interpreting/reviewing x-rays and diagnostic studies, care of the patient and discussion of the patient with the admitting physicians. Trauma Alert - Level One Trauma Alert Level One: Full trauma team activate Physician Communication Dr. Ruiz aware patient as received report from Ellie and will follow along dr rivera came to ct and took patient emergently to OR, agrees to mannitol Diagnosis Diagnosis: Primary Impression: Intracranial bleed Additional Impression: Fall Qualified Codes: W19.XXXA - Unspecified fall, initial encounter Admitting Physician Requests: Admit Nisha Thornton MD Jan 08, 2018 13:35
--- NOTE | 2018-01-08 13:36 | RADRPT ---
EXAM DATE/TIME: 01/08/2018 12:34 [facility] COMPARISON: CT BRAIN W/O CONTRAST, January 08, 2018, 12:34. INDICATIONS : Trauma Alert, fall. RADIATION DOSE: 21.96 CTDIvol (mGy) MEDICAL HISTORY : Non-responsive. SURGICAL HISTORY : Non-responsive. ENCOUNTER: Initial ACUITY: 1 day PAIN SCORE: Non-responsive LOCATION: facial TECHNIQUE: Volumetric scanning of the facial bones was performed. Using automated exposure control and adjustme nt of the mA and/or kV according to patient size, radiation dose was kept as low as reasonably achiev able to obtain optimal diagnostic quality images. DICOM format image data is available electronicYorder y for review and comparison. FINDINGS: ORBITS: The orbital and infraorbital osseous structures are intact. The retroconal structures have a normal configuration. No radiopaque foreign bodies are seen. NASAL BONE: The nasal bone and maxillary spine are intact ZYGOMATIC ARCHES: Symmetric without evidence of fracture. SINUSES: The maxillary, ethmoid and frontal sinuses are intact. No air-fluid levels seen. NASAL CAVITY: The nasal septum is intact and midline. The lacrimal ducts are intact. SOFT TISSUES: No radiopaque foreign bodies seen. There is soft tissue swelling a large hematoma centered around the left orbit. INTRACRANIAL: No intracranial air seen. CRIBIFORM PLATE: Grossly intact. CONCLUSION: 1. There is a large hematoma evident surrounding and involving the left orbit. 2. No acute facial fracture identified. Maxi Ann MD on January 08, 2018 at 13:31 Board Certified Radiologist. This report was verified electronically.
[2018-01-08] MEDS ORDERED: CALCIUM CHLORIDE 10% SOLN 1 GRAM/10 ML SYR ONE (14:10)
[2018-01-08] MEDS: NS + KCL 20 MEQ INJ 1,000 ML IV SCH (14:29)
[2018-01-08] MEDS ORDERED: POTASSIUM CHLOR 20 MEQ PREMIX 100 ML IV PRN (14:30)
[2018-01-08] MEDS ORDERED: ACETAMINOPHEN/HYDROcodone 325 MG/10 MG TAB PO PRN ×2 (14:30)
[2018-01-08] MEDS ORDERED: MORPHINE SULFATE 4 MG/ML INJ IV PUSH PRN ×2 (14:30)
[2018-01-08] MEDS ORDERED: MAGNESIUM SULFATE INJ 4 GM in SODIUM CHLORIDE 0.9% INJ 100 ML IV PRN (14:30)
[2018-01-08] MEDS ORDERED: ACETAMINOPHEN 325 MG TAB PO PRN (14:30)
[2018-01-08] MEDS ORDERED: CALCIUM GLUCONATE 10% 1 GM/10 ML VIAL IV PRN (14:30)
[2018-01-08] MEDS ORDERED: BISACODYL 10 MG SUPP RECTAL PRN (14:30)
--- NOTE | 2018-01-08 14:32 | PD.OP ---
Operative Report Date of Surgery: Jan 08, 2018 Preoperative Diagnosis: Severe traumatic brain injury Postoperative Diagnosis: Severe traumatic brain injury Procedure: CRANIOTOME. Left frontal Colbert hole with placement of a ventriculostomy catheter Anesthesia: local Surgeon: Yash Rivera Electronic Engineering Technician(s): LIZETT Operation and Findings: INDICATIONS FOR THE PROCEDURE The patient is an adult male who was brought to [facility] as a trauma alert with a severe traumatic brain injury CT of the brain showed a large acute subdural hematoma with mass effect and midline shift Placement of a venriculostomy catheter was indicated as recommended by the Trauma Commitee of [employer] DETAILS OF THE SURGICAL PROCEDURE The frontal area was shaved, prepped and draped in the usual sterile fashion. An entry point was selected 90 millimeters posterior to the supraorbital rim and 25 millimeters from the midline. The area was infiltrated with 1% lidocaine with epinephrine. A skin incision was made with a #15 blade down to the level of the periosteum. Using the TPS senior sales administrator with the CRANIOTOME attachment, a raghav hole was made. The dura was carefully opened with a brain needle and a ventriculostomy catheter was advanced into the ventricular system. At a depth of 60 millimeters, cerebrospinal fluid was obtained. Opening pressure was 12 centimeters of water. A specimen of cerebrospinal fluid was collected and sent to the lab for analysis of the glucose, protein, cell count and cultures. The catheter was then tunneled under the galea and externalized through a separate stab incision. The incision was closed with 3-0 Vicryl for the galea, and amando on the skin. The patient tolerated the procedure well. COMPLICATIONS There were no intraoperative complications. BLOOD LOSS Blood loss was minimal. Yash Rivera MD Jan 08, 2018 14:32
--- NOTE | 2018-01-08 14:32 | PD.OP ---
Operative Report Date of Surgery: Jan 08, 2018 Preoperative Diagnosis: Trauma alert. Severe traumatic brain injury Postoperative Diagnosis: Trauma alert. Severe traumatic brain injury Procedure: Left frontotemporoparietal decompressive craniectomy, evacuation of subdural hematoma. Debridement of left temporal brain contusion Anesthesia: general endotracheal Surgeon: Yash Rivera Slate Splitter(s): Teresa Mccabe Operation and Findings: INDICATIONS FOR THE PROCEDURE The patient is an adult male who was brought to [facility] as a trauma alert with a severe traumatic brain injury CT of the brain showed an acute left occipital and subdural hematoma with mass effect and midline shift A surgical decompression was indicated as recommended by the Trauma Commitee of [employer] in an attempt to save the patient 's life DETAILS OF THE SURGICAL PROCEDURE The patient was endotracheally intubated and mechanically ventilated. A Copeland catheter, bilateral DEBORAH hose and sequential compression devices were placed and kept throughout the procedure. The patient was positioned supine on a 3080 table over a soft mattress. The eyes were tapped shut after ointment was applied by the anesthesiologist to prevent corneal abrasion. A Yuri hugger was placed over the exposed lower body to maintain control of the core body temperature. The head was placed on a gel doughnut. All pressure points were carefully padded with egg crate mattress. The left frontotemporal parietal area was shaved, prepped and draped in the usual sterile fashion. A standard inverted question karl incision was outlined on the scalp and infiltrated with 1% lidocaine with epinephrine. The skin incision was made with a #10 blade down to the level of the periosteum in the left frontoparietal region and to the temporalis fascia in the temporal region. Meron clips were applied to the scalp. Using a Bovie, the temporalis fascia and muscle were incised and a subperiosteal dissection was performed reflecting the scalp flap anteriorly. The scalp was covered with a moist sponge and held in position using fish hooks. The TPS drill was brought to the field and a bur hole was made in the parietal temporal region using the craniotome attachment. Then, using the footplate attachment, a large frontotemporoparietal craniotomy flap was elevated. The dura was bulging, very tense with severe pressure and an underlying dark coloration related to the acute subdural hematoma. The dura was opened with a 15 blade and metzembaun scissors and a large subdural hematoma was found, causing significant mass effect. The hematoma was evacuated by gentle irrigation and sent to the lab for histologic analysis. The bleeding was controlled using the bipolar manager category. Then the incision was irrigated with saline solution. The dural edges were tacked to the bone. The dura was loosely reconstructed using Duragen. Given the significant brain edema, the craniotomy flap was not repositioned. A 10 millimeter Jaden-English drain was then left in the subgaleal space and externalized through a separate stab incision. The incision was then closed in layers. 0 Vicryl in interrupted sutures were used to close the temporalis fascia. The galea was closed with interrupted 3- 0 Vicryl. [place] were applied to the skin. The drain was secured with a 3-0 nylon. At the end of the procedure, the sponge, needle and instrument counts were all correct. Estimated blood loss was less than 250 cc. No blood transfusion was given. No intraoperative complications occurred. The patient received prophylactic antibiotics. The patient was then transferred to the recovery room in stable condition. Yash Rivera MD Jan 08, 2018 14:32
[2018-01-08] MEDS ORDERED: PHARMACY NEEDS HT/WT ENTERED SCH (15:00)
[2018-01-08] MEDS ORDERED: CALCIUM GLUCONATE INJ 1 GM in SODIUM CHLORIDE 0.9% INJ 100 ML IV PRN (15:15)
[2018-01-08] MEDS ORDERED: DO NOT ADM ANY ANTICOAGULANT DRUGS PRN (15:25)
[2018-01-08] MEDS ORDERED: PROPOFOL 1000 MG/100 ML INJ 100 ML ONE (15:28)
[2018-01-08] MEDS ORDERED: niCARdipine 25 MG/NS 250 ML Vial2Bag or IV room IV PRN ×2 (16:00)
[2018-01-08 16:28] LABS: MEAN CELL VOLUME 80.4 FL (80.0-100.0); MEAN CORPUSCULAR HEMOGLOBIN 26.8 PG (27.0-34.0); MEAN CORPUSCULAR HGB CONC 33.4 % (32.0-36.0); MEAN PLATELET VOLUME 7.4 FL (7.0-11.0); PLATELET COUNT 71 TH/MM3 (150-450); RED BLOOD COUNT 2.17 MIL/MM3 (4.50-5.90); RED CELL DISTRIBUTION WIDTH 14.3 % (11.6-17.2); WHITE BLOOD COUNT 7.2 TH/MM3 (4.0-11.0)
[2018-01-08] MEDS ORDERED: 3% SALINE INJ 500 ML IV SCH (16:30)
[2018-01-08 16:45] LABS: BICARBONATE 25.5 MEQ/L (21.0-32.0); CALCIUM 8.6 MG/DL (8.5-10.1); CREATININE 1.19 MG/DL (0.60-1.30)
[2018-01-08 16:56] LABS: HEMATOCRIT 17.5 % (39.0-51.0); HEMOGLOBIN 5.8 GM/DL (13.0-17.0)
[2018-01-08] MEDS: PROPOFOL 1000 MG/100 ML INJ 100 ML IV PRN ×3 (17:00→23:43)
[2018-01-08 17:29] LABS: CSF BASOPHILS 2 %; CSF EOSINOPHILS 1 %; CSF LYMPHOCYTES 13 %; CSF MONOCYTES 4 %; CSF NEUTROPHILS 80 %; RBC TUBE #1 251427 /MM3; SUPERNATE COLOR TUBE #1 HEMOLYZED (CLEAR); VOLUME TUBE # 1 2.5 ML; WBC TUBE #1 1110 /MM3 (0-10)
[2018-01-08 17:49] LABS: TOTAL PROTEIN,CSF 1144.2 MG/DL (15.0-45.0)
[2018-01-08] MEDS ORDERED: fentaNYL 2,500 MCG/NS 250 ML IV PRN (20:15)
--- NOTE | 2018-01-08 20:24 | RADRPT ---
EXAM DATE/TIME: 01/08/2018 19:51 [facility] COMPARISON: No previous studies available for comparison. INDICATIONS : Central line placement. MEDICAL HISTORY : Unobtainable. SURGICAL HISTORY : Unobtainable. ENCOUNTER: Subsequent ACUITY: 1 day PAIN SCORE: Non-responsive. LOCATION: Bilateral chest FINDINGS: A single view of the chest demonstrates endotracheal tube in good position. There is a right central line in the subclavian vein. Patchy bilateral airspace disease, slightly improved on the right since earlier exam. CONCLUSION: 1. Right central line tip in right subclavian vein near junction with internal jugular vein without p neumothorax. Tamir Bazzi MD on January 08, 2018 at 20:20 Board Certified Radiologist. This report was verified electronically.
--- NOTE | 2018-01-08 20:58 | PD.CONS ---
HPI Service Critical Care Medicine Consult Requested By Trauma service Reason for Consult management of acute intracranial hypertension Primary Care Physician Unknown History of Present Illness This is a 7-year-old male with a history of some cancer, but unknown type, stage , and treatment, who was found wandering the house by his . Per reports, he was unarousable in bed later that morning and EMS was called. On EMS arrival the patient was unresponsive and was intubated in the field for a GCS of 3. He was stabilized at [facility] and then immediately transferred to [facility] as the accepting referral trauma center. CT head demonstrates a large left occipital intraparenchymal hemorrhage with large left subdural hemorrhage with midline shift and a blown pupil. He was taken emergently to the OR for decompressive craniectomy. He arrives to the CVICU intubated with ICPs of 36. In discussing the case with Dr. Rivera who took him to the operating theater, the patient had severely edematous brain, and Dr. Rivera feels that the patient will likely continue his malignant cerebral edema and may not survive this illness. No additional information is available from the patient due to his critical condition. ROS is unobtainable. Review of Systems ROS Limitations: Clinical Condition, Intubated, Altered Mental Status, Unresponsive Past Family Social History Allergies: Coded Allergies: No Allergy Information Available (Unverified , 01/08/18) Past Medical History Unknown unobtainable secondary to clinical condition the patient. Past Surgical History Unknown unobtainable secondary to clinical condition the patient. Reported Medications Unknown unobtainable secondary to clinical condition the patient. Active Ordered Medications See MAR Family History Unknown unobtainable secondary to clinical condition the patient. Social History Unknown unobtainable secondary to clinical condition the patient. Physical Exam Vital Signs Vital Signs Date Time Temp Pulse Resp B/P (MAP) Pulse Ox O2 Delivery O2 Flow Rate FiO2 01/08/18 17:00 70 01/08/18 17:00 100 100 01/08/18 16:45 74 15 159/47 (84) 100 Mechanical Ventilator 100 01/08/18 16:30 77 15 172/48 (89) 100 Mechanical Ventilator 100 01/08/18 16:15 78 15 196/59 (104) 100 Mechanical Ventilator 100 01/08/18 16:00 79 15 195/62 (106) 100 Mechanical Ventilator 100 01/08/18 15:49 78 159/67 01/08/18 15:45 78 15 179/57 (97) 100 Mechanical Ventilator 100 01/08/18 15:30 80 15 178/55 (96) 100 Mechanical Ventilator 100 01/08/18 15:28 99 100 01/08/18 15:17 97.5 80 15 145/65 (91) 100 Mechanical Ventilator 100 01/08/18 15:17 100 01/08/18 13:10 94 100 01/08/18 13:08 94 100 01/08/18 13:07 94 15.00 Physical Exam GENERAL: Elderly male, lying in bed, intubated, sedated HEENT: Left periorbital ecchymoses. Head is wrapped in an Conrado bandage. Ventriculostomy exits the skull with bright red blood draining out of it. Pupils are now equally round and reactive. Mucous membranes are moist NECK: Trachea is midline. There is no JVD. CHEST: Equal chest rise. PRVC. CARDIOVASCULAR: Normal rate, regular rhythm. Sinus by telemetry. Systolic is 160s. On nicardipine infusion. ABDOMEN: Soft, nontender, nondistended. No guarding. MUSCULOSKELETAL: Pulses 2+. No peripheral edema. NEUROLOGICAL: GCS 3. Pupils as above. Laboratory Laboratory Tests Test 01/08/18 12:30 01/08/18 14:39 01/08/18 15:35 01/08/18 16:10 White Blood Count 11.0 7.2 Red Blood Count 3.90 2.17 Hemoglobin 10.5 5.8 Bedside Hemoglobin 10.9 Hematocrit 32.0 17.5 Bedside Hematocrit 32.0 Mean Corpuscular Volume 82.1 80.4 Mean Corpuscular Hemoglobin 26.9 26.8 Mean Corpuscular Hemoglobin Concent 32.8 33.4 Red Cell Distribution Width 14.7 14.3 Platelet Count 64 71 Mean Platelet Volume 9.3 7.4 Neutrophils (%) (Auto) 83.4 Lymphocytes (%) (Auto) 7.8 Monocytes (%) (Auto) 7.1 Eosinophils (%) (Auto) 1.1 Basophils (%) (Auto) 0.6 Neutrophils # (Auto) 9.2 Lymphocytes # (Auto) 0.9 Monocytes # (Auto) 0.8 Eosinophils # (Auto) 0.1 Basophils # (Auto) 0.1 CBC Comment AUTO DIFF Differential Comment AUTO DIFF CONFIRMED Platelet Estimate LOW Platelet Morphology Comment ENLARGED Ovalocytes 1+ Helmet Cells OCC Keratocytes OCC Prothrombin Time 24.4 Prothromb Time International Ratio 2.4 Activated Partial Thromboplast Time 42.9 Bedside Sodium 137 Bedside Potassium 4.3 Bedside Chloride 103 Bedside Blood Urea Nitrogen 25 Bedside Creatinine 1.2 Bedside Glucose 246 CSF Volume (Tube 1) 2.5 CSF Supernatant Color (tube 1) HEMOLYZED CSF Gross Blood (Tube 1) 4+ CSF WBC (Tube 1) 1110 CSF RBC (Tube 1) 741374 CSF Neutrophils 80 CSF Lymphocytes 13 CSF Monocytes 4 CSF Eosinophils 1 CSF Basophils 2 CSF Glucose 141 CSF Total Protein 1144.2 Blood Gas Puncture Site ART LINE Blood Gas Patient Temperature 98.6 Blood Gas HCO3 24 Blood Gas Base Excess -0.4 Blood Gas Oxygen Saturation 96 Arterial Blood pH 7.36 Arterial Blood Partial Pressure CO2 44 Arterial Blood Partial Pressure O2 183 Arterial Blood Oxygen Content 8.6 Arterial Blood Carboxyhemoglobin 1.8 Arterial Blood Methemoglobin 1.7 Blood Gas Hemoglobin 6.0 Oxygen Delivery Device VENTILATOR Blood Gas Ventilator Setting A/C 700/15/5PEEP Blood Gas Inspired Oxygen 100 Blood Urea Nitrogen 27 Creatinine 1.19 Random Glucose 206 Calcium Level 8.6 Sodium Level 139 Potassium Level 4.6 Chloride Level 105 Carbon Dioxide Level 25.5 Anion Gap 9 Estimat Glomerular Filtration Rate 53 Date/Time Source Procedure Growth Status 01/08/18 14:39 Cerebral Spinal Fluid Shunt Fluid Fungal Smear - Final NO FUNGAL ELEMENTS SEEN. Resulted 01/08/18 14:39 Cerebral Spinal Fluid Shunt Fluid Fungal Culture Pending Resulted Result Diagram: 01/08/18 1610 01/08/18 1610 Imaging Last Impressions Maxillofacial CT 01/08/18 1226 Signed Impressions: Service Date/Time: January 12:34 - CONCLUSION: 1. There is a large hematoma evident surrounding and involving the left orbit. 2. No acute facial fracture identified. Maxi Ann MD Head CT 01/08/18 1226 Signed Impressions: Service Date/Time: January 12:34 - CONCLUSION: 1. Grossly abnormal examination demonstrating a 4.0 x 2.4 cm interparenchymal hemorrhage within the left the occipital cortex. There is a 1.5 cm subdural hemorrhage along the entire left hemisphere. There is 7 mm of left to right falcine shift and diffuse edema throughout the left hemisphere as well. There is effacement of the perimesencephalic cisterns consistent with transtentorial herniation. There are edematous changes evident within the cerebellum and brainstem. Findings were discussed with Dr. Thornton. Maxi Ann MD Chest X-Ray 01/08/18 1226 Signed Impressions: Service Date/Time: January 12:26 - CONCLUSION: Bilateral infiltrates. Right-sided volume loss. Small pleural effusion on the right. No pneumothorax seen. Orlando Bradley MD Cervical Spine CT 01/08/18 1226 Signed Impressions: Service Date/Time: January 12:34 - CONCLUSION: 1. Degenerative changes throughout cervical spine as above. No acute cervical fracture identified. Maxi Ann MD Assessment and Plan Assessment and Plan Assessment: 77-year-old male with large left occipetal intracerebral hemorrhage , ICH score 2, with associated left subdural hemorrhage with 7mm midline shift, now s/p emergent decompressive craniectomy and malignant cerebral edema. very critically ill. very poor prognosis. will continue hyperosmolar therapy and monitor ICPs. Active Problems: Acute encephalopathy Malignant cerebral edema left occipital ICH left subdural hemorrhage s/p emergent decompressive craniectomy 4/ acute hypoxic and hypercarbic respiratory failure Plan: 3% saline hyperosmolar therapy serial sodiums, osms propofol, fentanyl goal RASS -5 goal etco2 30-35 frequent neuro checks neurosurgery consult:Dr rivera goal sbp < 160 for active bleeding, but attempt to maintain adequate cerebral perfusion pressure nicardipine and levophed as needed for goal hemodynamics no weaning of mechanical ventilation until neuro exam improves vent bundle, hob elevated, nebs wean fio2 for goal spo2 > 90% npo og tube to LIWS hold pharmacologic dvt prophylaxis given head bleed SCDs pepcid. This patient remains critically ill with one or more organ systems which are or may become a threat to life. I have spent in excess of 58 minutes discontinuously in the care and management of this patient. This time is exclusive of procedures, and includes, but is not limited to, evaluation of the patient, review of the medical record, discussions with family, consultants, nursing staff, or respiratory therapy, and documentation in the medical record. Large left occipital hemorrhagic stroke followed by a subsequent apparent traumatic left subdural hematoma -Patient be admitted to the trauma service for serial neurologic exams and continuous hemodynamic monitoring after surgery -Dr. Rivera was present in CT and is taking the patient emergently to the operating room -We will consult the surgical airplane coverer to assist with management Patient is critically ill with a very poor prognosis for meaningful recovery based on his CT scan and his unknown anticoagulation status Geoffrey Guallpa MD Jan 08, 2018 20:58
--- NOTE | 2018-01-08 20:59 | PD.PROCEDR ---
Procedure Note Procedure Central Line Procedure Note Right subclavian triple-lumen catheter Diagnosis: Malignant cerebral edema Indications: Need for 3% saline Consent: Emergent Anesthesia: None Description of the Procedure: The patient was placed in the supine, mild- Trendelenburg position. The area was prepped and draped sterilely. A 19g needle was inserted under negative pressure aspiration and dark venous blood was obtained. A guidewire was inserted easily without resistance. A small incision was made using a #11 blade. Using a modified Seldinger technique, the dilator and 7 Green[place]ic, 20 cm catheter were advanced over the guidewire without resistance. All ports were aspirated and flushed, and had brisk blood return. The line was secured at the skin using a StatLock device. A Biopatch and Transparent sterile dressing were applied. There were no immediate complications noted. There was minimal EBL. The patient tolerated the procedure well. Ultrasound guidance was not used for the procedure A Chest x-ray has been ordered. I personally performed the procedure. Geoffrey Guallpa MD Jan 08, 2018 20:59
[2018-01-08] MEDS ORDERED: SODIUM CHLORIDE 23.4% INJ 120 MEQ in SYRINGE/BAG 1 EA IV ONE (21:00)
[2018-01-08] MEDS ORDERED: DOCUSATE SODIUM 100 MG CAP PO SCH (21:00)
[2018-01-08] MEDS ORDERED: niCARdipine INJ 25 MG in SODIUM CHLOR 0.9% 250 ML INJ 240 ML IV PRN (21:15)
[2018-01-08] MEDS: MANNITOL 12.5 GM/50 ML VIAL IV SCH (21:53)
[2018-01-08] MEDS: DOCUSATE SODIUM 100 MG CAP PO SCH (21:54)
[2018-01-08] MEDS ORDERED: NOREPINEPHRINE 4 MG/4 ML AMP ONE (22:29)
[2018-01-08] MEDS: NOREPINEPHRINE INJ 4 MG in SODIUM CHLOR 0.9% 250 ML INJ 246 ML IV PRN (22:31)
[2018-01-08] MEDS: fentaNYL 2,500 MCG/NS 250 ML IV PRN (23:42)
[2018-01-08] MEDS: 3% SALINE INJ 500 ML IV PRN (23:45)
[2018-01-09] VITALS (24 sets, daily range): BP systolic 107–158; BP diastolic 58–72; PULSE 64–82; RESP 18; TEMP 96.6–99.5; O2SAT 94–100
[2018-01-09] MEDS: NS + KCL 20 MEQ INJ 1,000 ML IV SCH ×2 (00:29→08:45)
[2018-01-09] MEDS: PROPOFOL 1000 MG/100 ML INJ 100 ML IV PRN ×4 (02:58→23:05)
[2018-01-09] MEDS: levETIRAcetam INJ 500 MG in SODIUM CHLORIDE 0.9% INJ 100 ML IV SCH ×2 (03:00→14:24)
[2018-01-09] MEDS: MANNITOL 12.5 GM/50 ML VIAL IV SCH ×4 (03:00→20:28)
[2018-01-09] MEDS: CHLORHEXIDINE GLUCONATE 2 % 1 PACK (2 CLOTHS) TOP SCH (04:00)
[2018-01-09 04:52] LABS: BASOPHIL % 0.4 % (0.0-2.0); EOSINOPHIL % 0.1 % (0.0-4.0); HEMATOCRIT 30.6 % (39.0-51.0); HEMOGLOBIN 10.6 GM/DL (13.0-17.0); LYMPH % 6.9 % (9.0-44.0); LYMPHOCYTE # 0.6 TH/MM3 (1.0-4.8); MEAN CELL VOLUME 83.4 FL (80.0-100.0); MEAN CORPUSCULAR HEMOGLOBIN 28.9 PG (27.0-34.0); MEAN CORPUSCULAR HGB CONC 34.6 % (32.0-36.0); MEAN PLATELET VOLUME 8.9 FL (7.0-11.0); MONO % 11.8 % (0.0-8.0); NEUT % 80.8 % (16.0-70.0); PLATELET COUNT 56 TH/MM3 (150-450); RED BLOOD COUNT 3.67 MIL/MM3 (4.50-5.90); RED CELL DISTRIBUTION WIDTH 14.9 % (11.6-17.2); WHITE BLOOD COUNT 8.6 TH/MM3 (4.0-11.0)
[2018-01-09 04:57] LABS: INTERNATIONAL NORMALIZED RATIO 1.2 RATIO; PROTHROMBIN TIME - PATIENT 12.4 SEC (9.8-11.6)
[2018-01-09 05:00] LABS: BICARBONATE 22.4 MEQ/L (21.0-32.0); CALCIUM 8.1 MG/DL (8.5-10.1); CREATININE 1.26 MG/DL (0.60-1.30)
[2018-01-09 07:54] LABS: OVALOCYTES 1+ (NORMAL)
[2018-01-09] MEDS: CHLORHEXIDINE 0.12% (ORAL KIT) 15 ML CUP MT SCH ×2 (07:59→20:28)
[2018-01-09] MEDS: DOCUSATE SODIUM 100 MG CAP PO SCH ×2 (08:13→20:28)
[2018-01-09] MEDS: PANTOPRAZOLE SODIUM 40 MG VIAL IVP SCH (08:13)
[2018-01-09] MEDS: PANTOPRAZOLE SOD 40 MG DELAYED RELEASE TAB PO SCH (08:13)
[2018-01-09] MEDS ORDERED: ATROPINE SULFATE 1 MG/10 ML SYRINGE ONE (08:19)
[2018-01-09] MEDS ORDERED: PANTOPRAZOLE SODIUM 40 MG VIAL IVP SCH (09:00)
--- NOTE | 2018-01-09 09:25 | HHI.NSPN ---
(Sandra Hooks) Note Status Status: Progress Note (Sandra Hooks) Interval History Interval History Mr. Torres is a 77 year old male who underwent emergent left frontal temporal parietal decompressive craniectomy with evacuation of large subdural hematoma 01/08/18. His CT Brain on arrival showed large left subdural hematoma, left occipital intraparenchymal hemorrhage with 7 mm midline shift. 01/09: currently intubated and with sedative drips. ventriculostomy in place, ICPs reported in the 40's. pupils now dilated, fixed without cough and gag reflexes. (Sandra Hooks) Labs, Micro, & Vital Signs Results Date Time Temp Pulse Resp B/P (MAP) Pulse Ox O2 Delivery O2 Flow Rate FiO2 01/09/18 08:35 96 50 01/09/18 08:00 99.5 68 18 144/61 (88) 95 01/09/18 08:00 70 01/09/18 08:00 68 01/09/18 06:00 65 01/09/18 04:00 40 01/09/18 04:00 99.1 72 18 158/66 (96) 100 01/09/18 04:00 72 01/09/18 03:29 98 40 01/09/18 02:00 74 01/09/18 01:05 100 50 01/09/18 01:00 97.0 77 18 150/72 100 01/09/18 00:30 96.6 68 18 149/71 100 01/09/18 00:13 96.6 68 18 146/68 100 01/09/18 00:00 97.0 73 18 147/70 (95) 100 01/09/18 00:00 50 01/09/18 00:00 73 01/08/18 22:31 63 97/48 01/08/18 22:00 65 01/08/18 20:53 96.1 76 18 146/50 100 01/08/18 20:04 100 60 01/08/18 20:00 96.1 80 18 158/56 (90) 100 4/5/18 20:00 70 01/08/18 20:00 77 01/08/18 17:00 70 01/08/18 17:00 100 100 01/08/18 16:45 74 15 159/47 (84) 100 Mechanical Ventilator 100 01/08/18 16:30 77 15 172/48 (89) 100 Mechanical Ventilator 100 01/08/18 16:15 78 15 196/59 (104) 100 Mechanical Ventilator 100 01/08/18 16:00 79 15 195/62 (106) 100 Mechanical Ventilator 100 01/08/18 15:49 78 159/67 01/08/18 15:45 78 15 179/57 (97) 100 Mechanical Ventilator 100 01/08/18 15:30 80 15 178/55 (96) 100 Mechanical Ventilator 100 01/08/18 15:28 99 100 01/08/18 15:17 97.5 80 15 145/65 (91) 100 Mechanical Ventilator 100 01/08/18 15:17 100 01/08/18 13:10 94 100 01/08/18 13:08 94 100 01/08/18 13:07 94 15.00 Constitutional Vital Signs Date Time Temp Pulse Resp B/P (MAP) Pulse Ox O2 Delivery O2 Flow Rate FiO2 01/09/18 08:35 96 50 01/09/18 08:00 99.5 68 18 144/61 (88) 95 01/09/18 08:00 70 01/09/18 08:00 68 01/09/18 06:00 65 01/09/18 04:00 40 01/09/18 04:00 99.1 72 18 158/66 (96) 100 01/09/18 04:00 72 01/09/18 03:29 98 40 01/09/18 02:00 74 01/09/18 01:05 100 50 01/09/18 01:00 97.0 77 18 150/72 100 01/09/18 00:30 96.6 68 18 149/71 100 01/09/18 00:13 96.6 68 18 146/68 100 01/09/18 00:00 97.0 73 18 147/70 (95) 100 01/09/18 00:00 50 01/09/18 00:00 73 01/08/18 22:31 63 97/48 01/08/18 22:00 65 01/08/18 20:53 96.1 76 18 146/50 100 4/02/20 20:04 100 60 4/02/20 20:00 96.1 80 18 158/56 (90) 100 01/08/18 20:00 70 01/08/18 20:00 77 4/02/20 17:00 70 4/02/20 17:00 100 100 01/08/18 16:45 74 15 159/47 (84) 100 Mechanical Ventilator 100 01/08/18 16:30 77 15 172/48 (89) 100 Mechanical Ventilator 100 01/08/18 16:15 78 15 196/59 (104) 100 Mechanical Ventilator 100 01/08/18 16:00 79 15 195/62 (106) 100 Mechanical Ventilator 100 01/08/18 15:49 78 159/67 01/08/18 15:45 78 15 179/57 (97) 100 Mechanical Ventilator 100 01/08/18 15:30 80 15 178/55 (96) 100 Mechanical Ventilator 100 01/08/18 15:28 99 100 01/08/18 15:17 97.5 80 15 145/65 (91) 100 Mechanical Ventilator 100 01/08/18 15:17 100 01/08/18 13:10 94 100 01/08/18 13:08 94 100 01/08/18 13:07 94 15.00 (Sandra Hooks) Review of Systems ROS Limitations: Clinical Condition, Intubated (Sandra Hooks) Physical Exam Mr. Torres is intubated and sedated on sedative drips. Left cranial flap full THADDEUS drains in place. Ventriculostomy drain with minimal output. Neuro: comatose, sedated. Cranial Nerves: pupils 8-9 mm bilaterally nonreactive. Cervical Spine: soft, supple Motor: no spontaneous movement Reflexes: No oculocephalic reflex, no corneal reflex, no cough or gag reflex. Plantars silent bilaterally Sensory: no response to pain stimulation Cerebellar: cannot assess Heart: regular rate rhythm (Sandra Hooks) Medications Current Medications Current Medications Medications (Trade) Dose Ordered Sig/Rashad Route PRN Reason Start Time Stop Time Status Last Admin Dose Admin Sodium Chloride (NS Flush) 2 ml UNSCH PRN IV FLUSH FLUSH AFTER USING IV ACCESS 01/08/18 13:00 Enalaprilat (Vasotec Inj) 1.25 mg Q8H PRN IV PUSH SBP>180, DBP>95 01/08/18 13:00 Docusate Sodium (Colace) 100 mg BID PO 01/08/18 21:00 01/09/18 08:13 Magnesium Hydroxide (Milk Of Magnesia Liq) 30 ml Q6H PRN PO CONSTIPATION 01/08/18 13:00 Miscellaneous Information 1 [id number] XX 01/08/18 13:00 Chlorhexidine Gluconate (Chlorhexidine 2% Cloth) 3 pack Taper DAILY@04 TOP 01/09/18 04:00 01/05/19 03:59 Chlorhexidine Gluconate (Chlorhexidine 2% Cloth) 3 pack UNSCH PRN TOP HYGIENIC CARE 01/08/18 13:00 Fentanyl Citrate (fentaNYL INJ) 100 mcg Q1H PRN IV PUSH PAIN SCALE 1 TO 10 01/08/18 13:00 Potassium Chloride/Sodium Chloride 1,000 ml @ 100 mls/hr Q10H IV 01/08/18 14:29 01/09/18 00:29 Cefazolin Sodium 2000 mg/Sodium Chloride 100 ml @ 100 mls/hr Q8H IV 01/08/18 21:00 01/09/18 13:59 01/09/18 05:00 Levetriacetam 500 mg/Sodium Chloride 105 ml @ 400 mls/hr Q12H IV 01/08/18 15:00 01/09/18 03:00 Bisacodyl (Dulcolax Supp) 10 mg DAILY PRN RECTAL CONSTIPATION 01/08/18 14:30 Pantoprazole Sodium (Protonix) 40 mg DAILY PO 01/09/18 09:00 01/09/18 08:13 Ondansetron HCl (Zofran Inj) 4 mg Q6H PRN IV PUSH NAUSEA OR VOMITING 01/08/18 14:30 Potassium Chloride 100 ml @ 50 mls/hr UNSCH PRN IV POTASSIUM LESS THAN 4 01/08/18 14:30 Magnesium Sulfate 4 gm/Sodium Chloride 108 ml @ 108 mls/hr UNSCH PRN IV MAGNESIUM LESS THAN 2 01/08/18 14:30 Acetaminophen/ Hydrocodone Bitart ([place] 10-325 Mg) 1 tab Q4H PRN PO PAIN SCALE 1 TO 5 01/08/18 14:30 Acetaminophen/ Hydrocodone Bitart ([place] 10-325 Mg) 2 tab Q4H PRN PO PAIN SCALE 6 TO 10 01/08/18 14:30 Morphine Sulfate (Morphine Inj) 2 mg Q2H PRN IV PUSH PAIN 1-6 IF NOT TOLERATING PO 01/08/18 14:30 Morphine Sulfate (Morphine Inj) 4 mg Q2H PRN IV PUSH PAIN 7-10 IF NOT TOLERATING PO 01/08/18 14:30 Acetaminophen (Tylenol) 650 mg Q4H PRN PO TEMPERATURE > 101.5 F 01/08/18 14:30 Calcium Gluconate 1 gm/Sodium Chloride 110 ml @ 110 mls/hr UNSCH PRN IV SEE LABEL COMMENTS 01/08/18 15:15 Propofol 100 ml @ 2.52 mls/hr TITRATE PRN IV SEDATION 01/08/18 15:45 01/09/18 02:58 Miscellaneous Information ALL NURSING DEPARTME... UNSCH PRN .XX SEE LABEL COMMENTS 01/08/18 15:25 01/09/18 15:24 Sodium Chloride 500 ml @ 35 mls/hr CONTINUOUS IV 01/08/18 16:30 Pantoprazole Sodium (Protonix Inj) 40 mg DAILY IVP 01/09/18 09:00 Mannitol (Mannitol Inj) 25 gm Q6H IV 01/08/18 22:00 01/09/18 03:00 Nicardipine HCl 25 mg/Sodium Chloride 250 ml @ 50 mls/hr TITRATE PRN IV Blood pressure management 01/08/18 21:15 Chlorhexidine Gluconate (Peridex 0.12% Liq) 15 ml BID@08,20 MT 01/09/18 08:00 01/09/18 07:59 Sodium Chloride 500 ml @ 40 mls/hr UNSCH PRN IV ICP > 20 01/08/18 21:15 01/13/18 21:14 01/08/18 23:45 Fentanyl Citrate 250 ml @ 5 mls/hr TITRATE PRN IV Sedation 01/08/18 21:15 01/08/18 23:42 Norepinephrine Bitartrate 4 mg/ Sodium Chloride 250 ml @ 7.5 mls/hr TITRATE PRN IV Maintain CPP > 70 mmHg 01/08/18 23:15 01/08/18 22:31 (Sandra Hooks) Medical Decision Making MDM Remarks 77 year old male s/p emergent left frontal temporal parietal decompressive craniectomy with evacuation of large subdural hematoma, placement of ventriculostomy drain on 01/08/18 CT Brain on arrival showed large left subdural hematoma, left occipital intraparenchymal hemorrhage with 7 mm midline shift Sedated currently but examination appears poor with dilated and fixed pupils (Sandra Hooks) Plan Plan Remarks worsened neuro examination, with persistent elevated ICPs for f/u CT Brain today cont ventriculostomy draining, cont hyperosmotic tx, end tidal co2 monitoring, sedation for ICP control cont neuro checks trauma and critical care management (Sandra Hooks) Attending Statement As above. Awaiting follow up Ct of the brain The exam, history, and the medical decision-making described in the above note were completed with the assistance of the mid-level provider. I reviewed and agree with the findings presented. I attest that I had a [id number] encounter with the patient on the same day, and personally performed and documented my assessment and findings in the medical record. (Yash Rivera MD) Sandra Hooks Jan 09, 2018 09:25 Yash Rivera MD Jan 09, 2018 16:31
--- NOTE | 2018-01-09 10:42 | PD.CONS ---
Consult Service Palliative Care Consult Requested By Karley REYNA Primary Care Physician Unknown Reason for Consultation a. To assist with evaluation and management of symptoms including: dyspnea b. To assist medical decision maker(s) with: better understanding of current medical conditions; weighing benefits/burdens of medical treatment options; making medical treatment decisions. (Chelo Rice) HPI History of Present Illness This 77-year-old male was transferred as a trauma alert here from [facility] 01/08/18. His reports earlier in the day he was not acting right, was wandering in their house, he may have sustained a fall, would not walk her dog , stating he needed to lay down. She later found him unresponsive. She called 911, at EMS arrival he was intubated pupils unequal. He was brought to [facility], where he was found to have periorbital hematoma thus they transferred him to [facility], [facility]. * In the ED here, patient emergently taken to CT scan and has large bleed with shift with concerns for herniation, neurosurgery at bedside, patient went emergently to surgery. 01/08 he underwent left frontotemporal parietal decompressive craniectomy, evacuation of subdural hematoma, debridement of left temporal brain contusion. * ICPs postoperatively in the 30s, critical care notes discussion with neurosurgery who notes patient was severely edematous brain in the OR felt likely the patient may continue with malignant cerebral edema and may not survive. Remains on mechanical vent for acute respiratory failure. On 3% saline, mannitol. Has OG tube in place to intermittent suction. * 4/6 ICPs reported 40s. Pupils dilated/ fixed, patient with absent cough and gag reflexes. Ordered for repeat CT brain. palliative care consulted to assist with clarification of goals of treatment. Nursing reports overnight patient with hemodynamic instability blood pressure labile hypertensive, then hypotensive. Also reports bradycardic episode with unsustained asystole. Having moderate amount of red drainage around ventriculostomy, THADDEUS sites. ICPs remain elevated 40s. Reported that patient initially had corneal reflex though did not have gag/cough at presentation. Patient now without gag, corneal reflex, pupils nonreactive. Patient seen in room , daughter at bedside. Met with them at length. To my exam nonresponsive. No corneal reflex. Pupils 5 mm/ no reaction to light. Currently on Norepinephrine 3 MCG/MIN, propofol 50 mics/kilogram / minute. Significant periorbital ecchymosis to the left. . Function/Cognitive Trajectory Prehospitalization cognitively sharp. Able to make his needs known. Some progressive physical decline and weakness, in part secondary to significant back pain. reports recently was found to have spinal metastasis from prior prostate cancer. . (Chelo Rice) Review of Systems ROS Limitations: Clinical Condition, Intubated, Unresponsive (Chelo Rice) Past Family Social History Coded Allergies: No Allergy Information Available (Unverified , 01/08/18) Past Medical History Prostate cancer--recently found found to have spinal metastases Diabetes hyperlipidemia . Reported Medications Glipizide Ranitidine Allopurinol Diltiazem . Current Medications Medications (Trade) Dose Ordered Sig/Rashad Route Start Time Stop Time Status Last Admin (NS Flush) 2 ml UNSCH PRN IV FLUSH 01/08/18 13:00 (Vasotec Inj) 1.25 mg Q8H PRN IV PUSH 01/08/18 13:00 (Colace) 100 mg BID PO 01/08/18 21:00 01/09/18 08:13 (Milk Of Stkr.itissa Liq) 30 ml Q6H PRN PO 01/08/18 13:00 Miscellaneous Information 1 [id number] XX 01/08/18 13:00 (Chlorhexidine 2% Cloth) 3 pack Taper DAILY@04 TOP 01/09/18 04:00 01/05/19 03:59 (Chlorhexidine 2% Cloth) 3 pack UNSCH PRN TOP 01/08/18 13:00 (fentaNYL INJ) 100 mcg Q1H PRN IV PUSH 01/08/18 13:00 Cefazolin Sodium 2000 mg/Sodium Chloride 100 ml @ 100 mls/hr Q8H IV 01/08/18 21:00 01/09/18 13:59 01/09/18 05:00 Levetriacetam 500 mg/Sodium Chloride 105 ml @ 400 mls/hr Q12H IV 01/08/18 15:00 01/09/18 03:00 (Dulcolax Supp) 10 mg DAILY PRN RECTAL 01/08/18 14:30 (Protonix) 40 mg DAILY PO 01/09/18 09:00 01/09/18 08:13 (Zofran Inj) 4 mg Q6H PRN IV PUSH 01/08/18 14:30 Potassium Chloride 100 ml @ 50 mls/hr UNSCH PRN IV 01/08/18 14:30 Magnesium Sulfate 4 gm/Sodium Chloride 108 ml @ 108 mls/hr UNSCH PRN IV 01/08/18 14:30 ([place] 10-325 Mg) 1 tab Q4H PRN PO 01/08/18 14:30 ([place] 10-325 Mg) 2 tab Q4H PRN PO 01/08/18 14:30 (Morphine Inj) 2 mg Q2H PRN IV PUSH 01/08/18 14:30 (Morphine Inj) 4 mg Q2H PRN IV PUSH 01/08/18 14:30 (Tylenol) 650 mg Q4H PRN PO 01/08/18 14:30 Calcium Gluconate 1 gm/Sodium Chloride 110 ml @ 110 mls/hr UNSCH PRN IV 01/08/18 15:15 Propofol 100 ml @ 2.52 mls/hr TITRATE PRN IV 01/08/18 15:45 01/09/18 02:58 Miscellaneous Information ALL NURSING DEPARTME... UNSCH PRN .XX 01/08/18 15:25 01/09/18 15:24 Sodium Chloride 500 ml @ 35 mls/hr CONTINUOUS IV 01/08/18 16:30 (Protonix Inj) 40 mg DAILY IVP 01/09/18 09:00 (Mannitol Inj) 25 gm Q6H IV 01/08/18 22:00 01/09/18 03:00 Nicardipine HCl 25 mg/Sodium Chloride 250 ml @ 50 mls/hr TITRATE PRN IV 01/08/18 21:15 (Peridex 0.12% Liq) 15 ml BID@08,20 MT 01/09/18 08:00 01/09/18 07:59 Sodium Chloride 500 ml @ 40 mls/hr UNSCH PRN IV 01/08/18 21:15 01/13/18 21:14 01/08/18 23:45 Fentanyl Citrate 250 ml @ 5 mls/hr TITRATE PRN IV 01/08/18 21:15 01/08/18 23:42 Norepinephrine Bitartrate 4 mg/ Sodium Chloride 250 ml @ 7.5 mls/hr TITRATE PRN IV 01/08/18 23:15 01/08/18 22:31 Family History Family history of cancer in mother, cancer in father. Adult sibling living and well . Substance Use Tobacco: Alcohol: Prescription med abuse: Illicits: Psychosocial History Retired. Lives at home with his . Supported by 2 adult children. . 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 Not likely he will regain ability to participate. would be appropriate proxy per [place] statutes. (Chelo Rice) Physical Exam Vital Signs Date Time Temp Pulse Resp B/P (MAP) Pulse Ox O2 Delivery O2 Flow Rate FiO2 01/09/18 10:00 78 01/09/18 08:35 96 50 01/09/18 08:00 99.5 68 18 144/61 (88) 95 01/09/18 08:00 70 01/09/18 08:00 68 01/09/18 06:00 65 01/09/18 04:00 40 01/09/18 04:00 99.1 72 18 158/66 (96) 100 01/09/18 04:00 72 01/09/18 03:29 98 40 01/09/18 02:00 74 01/09/18 01:05 100 50 01/09/18 01:00 97.0 77 18 150/72 100 01/09/18 00:30 96.6 68 18 149/71 100 01/09/18 00:13 96.6 68 18 146/68 100 01/09/18 00:00 97.0 73 18 147/70 (95) 100 01/09/18 00:00 50 01/09/18 00:00 73 01/08/18 22:31 63 97/48 01/08/18 22:00 65 01/08/18 20:53 96.1 76 18 146/50 100 01/08/18 20:04 100 60 01/08/18 20:00 96.1 80 18 158/56 (90) 100 01/08/18 20:00 70 01/08/18 20:00 77 01/08/18 17:00 70 01/08/18 17:00 100 100 01/08/18 16:45 74 15 159/47 (84) 100 Mechanical Ventilator 100 01/08/18 16:30 77 15 172/48 (89) 100 Mechanical Ventilator 100 01/08/18 16:15 78 15 196/59 (104) 100 Mechanical Ventilator 100 01/08/18 16:00 79 15 195/62 (106) 100 Mechanical Ventilator 100 01/08/18 15:49 78 159/67 01/08/18 15:45 78 15 179/57 (97) 100 Mechanical Ventilator 100 01/08/18 15:30 80 15 178/55 (96) 100 Mechanical Ventilator 100 01/08/18 15:28 99 100 01/08/18 15:17 97.5 80 15 145/65 (91) 100 Mechanical Ventilator 100 01/08/18 15:17 100 01/08/18 13:10 94 100 01/08/18 13:08 94 100 01/08/18 13:07 94 15.00 Exam CONSTITUTIONAL/GENERAL: This is an adequately nourished patient, nonresponsive on mechanical TUBES/LINES/DRAINS: Central line right subclavian, ET tube, OG tube, ventricular strain, JPs from head, Copeland catheter, arterial line, peripheral IV upper extremity SKIN: No jaundice, rashes, or lesions. Left periorbital ecchymosis, edema. Dressing left shoulder. Skin warm/dry. HEAD: Left head incision with amando intact, some edema. Left periorbital edema and ecchymosis. Ventricular drain exits from top of head, moderate amount of red drainage around site, and tubing. JPs exit 2 with red drainage. EYES: Pupils 5 mm, nonreactive to light. Periorbital edema left eye scleral edema left eye. No scleral icterus. No injection or drainage. Fundi not examined. ENT: Nose without bleeding or purulent drainage. Unable to visualize oropharynx secondary to ET tube, OG tube. NECK: Trachea midline. Supple, nontender. No palpable thyroid enlargement or nodularity. CARDIOVASCULAR: Regular rate and rhythm without murmur. No JVD. Peripheral pulses symmetric.+ General edema to extremities. RESPIRATORY/CHEST: Symmetric, unlabored respirations. Coarse air movement throughout.. Breath sounds equal bilaterally. No spontaneous respirations over ventilator rate. GASTROINTESTINAL: Abdomen soft, round.. No palpable masses. Bowel sounds intermittent. GENITOURINARY: Without palpable bladder distension. Copeland catheter in place. MUSCULOSKELETAL: Extremities without clubbing, cyanosis. Peripheral edema to 4 extremities. NEUROLOGICAL: On sedation to prevent, fentanyl. Nonresponsive to exam. Pupils nonreactive. No withdrawal to stimuli. No corneal reflex. PSYCHIATRIC: Limited assessment secondary to clinical condition no obvious distress. (Chelo Rice) Diagnostic Tests Laboratory Laboratory Tests Test 01/08/18 12:30 01/08/18 14:39 01/08/18 15:35 01/08/18 16:10 White Blood Count 11.0 TH/MM3 (4.0-11.0) 7.2 TH/MM3 (4.0-11.0) Red Blood Count 3.90 MIL/MM3 (4.50-5.90) 2.17 MIL/MM3 (4.50-5.90) Hemoglobin 10.5 GM/DL (13.0-17.0) 5.8 GM/DL (13.0-17.0) Bedside Hemoglobin 10.9 G/DL (13.0-17.0) Hematocrit 32.0 % (39.0-51.0) 17.5 % (39.0-51.0) Bedside Hematocrit 32.0 % (39.0-51.0) Mean Corpuscular Volume 82.1 FL (80.0-100.0) 80.4 FL (80.0-100.0) Mean Corpuscular Hemoglobin 26.9 PG (27.0-34.0) 26.8 PG (27.0-34.0) Mean Corpuscular Hemoglobin Concent 32.8 % (32.0-36.0) 33.4 % (32.0-36.0) Red Cell Distribution Width 14.7 % (11.6-17.2) 14.3 % (11.6-17.2) Platelet Count 64 TH/MM3 (150-450) 71 TH/MM3 (150-450) Mean Platelet Volume 9.3 FL (7.0-11.0) 7.4 FL (7.0-11.0) Neutrophils (%) (Auto) 83.4 % (16.0-70.0) Lymphocytes (%) (Auto) 7.8 % (9.0-44.0) Monocytes (%) (Auto) 7.1 % (0.0-8.0) Eosinophils (%) (Auto) 1.1 % (0.0-4.0) Basophils (%) (Auto) 0.6 % (0.0-2.0) Neutrophils # (Auto) 9.2 TH/MM3 (1.8-7.7) Lymphocytes # (Auto) 0.9 TH/MM3 (1.0-4.8) Monocytes # (Auto) 0.8 TH/MM3 (0-0.9) Eosinophils # (Auto) 0.1 TH/MM3 (0-0.4) Basophils # (Auto) 0.1 TH/MM3 (0-0.2) CBC Comment AUTO DIFF Differential Comment AUTO DIFF CONFIRMED Platelet Estimate LOW (NORMAL) Platelet Morphology Comment ENLARGED (NORMAL) Ovalocytes 1+ (NORMAL) Helmet Cells OCC (NORMAL) Keratocytes OCC (NORMAL) Prothrombin Time 24.4 SEC (9.8-11.6) Prothromb Time International Ratio 2.4 RATIO Activated Partial Thromboplast Time 42.9 SEC (24.3-30.1) Bedside Sodium 137 MMOL/L (137-144) Bedside Potassium 4.3 MMOL/L (3.6-5.0) Bedside Chloride 103 MMOL/L (102-111) Bedside Blood Urea Nitrogen 25 MG/DL (5-21) Bedside Creatinine 1.2 MG/DL (0.6-1.3) Bedside Glucose 246 MG/DL (68-110) CSF Volume (Tube 1) 2.5 ML CSF Supernatant Color (tube 1) HEMOLYZED (CLEAR) CSF Gross Blood (Tube 1) 4+ (0) CSF WBC (Tube 1) 1110 /MM3 (0-10) CSF RBC (Tube 1) 140411 /MM3 (NONE) CSF Neutrophils 80 % CSF Lymphocytes 13 % CSF Monocytes 4 % CSF Eosinophils 1 % CSF Basophils 2 % CSF Glucose 141 MG/DL (40-80) CSF Total Protein 1144.2 MG/DL (15.0-45.0) Blood Gas Puncture Site ART LINE Blood Gas Patient Temperature 98.6 Blood Gas HCO3 24 mmol/L (22-26) Blood Gas Base Excess -0.4 mmol/L (-2-2) Blood Gas Oxygen Saturation 96 % (90-100) Arterial Blood pH 7.36 (7.380-7.420) Arterial Blood Partial Pressure CO2 44 mmHg (38-42) Arterial Blood Partial Pressure O2 183 mmHg (61-120) Arterial Blood Oxygen Content 8.6 Vol % (12.0-20.0) Arterial Blood Carboxyhemoglobin 1.8 % (0-4) Arterial Blood Methemoglobin 1.7 % (0-2) Blood Gas Hemoglobin 6.0 G/DL (12.0-16.0) Oxygen Delivery Device VENTILATOR Blood Gas Ventilator Setting A/C 700/15/5PEEP Blood Gas Inspired Oxygen 100 % Blood Urea Nitrogen 27 MG/DL (7-18) Creatinine 1.19 MG/DL (0.60-1.30) Random Glucose 206 MG/DL (74-106) Calcium Level 8.6 MG/DL (8.5-10.1) Sodium Level 139 MEQ/L (136-145) Potassium Level 4.6 MEQ/L (3.5-5.1) Chloride Level 105 MEQ/L (98-107) Carbon Dioxide Level 25.5 MEQ/L (21.0-32.0) Anion Gap 9 MEQ/L (5-15) Estimat Glomerular Filtration Rate 53 ML/MIN (>89) Test 01/08/18 17:20 01/08/18 21:35 01/09/18 00:28 01/09/18 04:00 Nasal Screen MRSA (PCR) MRSA NOT DETECTED (NOT Blood Gas Puncture Site ART LINE Blood Gas Patient Temperature 98.6 Blood Gas HCO3 21 mmol/L (22-26) Blood Gas Base Excess -3.6 mmol/L (-2-2) Blood Gas Oxygen Saturation 96 % (90-100) Arterial Blood pH 7.35 (7.380-7.420) Arterial Blood Partial Pressure CO2 40 mmHg (38-42) Arterial Blood Partial Pressure O2 127 mmHg (61-120) Arterial Blood Oxygen Content 8.9 Vol % (12.0-20.0) Arterial Blood Carboxyhemoglobin 1.6 % (0-4) Arterial Blood Methemoglobin 1.3 % (0-2) Blood Gas Hemoglobin 6.3 G/DL (12.0-16.0) Oxygen Delivery Device VENTILATOR Blood Gas Ventilator Setting PRVC/AC18/600/ Blood Gas Inspired Oxygen 60 % Sodium Level 143 MEQ/L (136-145) 143 MEQ/L (136-145) Serum Osmolality 317 MOSM/KG (275-295) 323 MOSM/KG (275-295) White Blood Count 8.6 TH/MM3 (4.0-11.0) Red Blood Count 3.67 MIL/MM3 (4.50-5.90) Hemoglobin 10.6 GM/DL (13.0-17.0) Hematocrit 30.6 % (39.0-51.0) Mean Corpuscular Volume 83.4 FL (80.0-100.0) Mean Corpuscular Hemoglobin 28.9 PG (27.0-34.0) Mean Corpuscular Hemoglobin Concent 34.6 % (32.0-36.0) Red Cell Distribution Width 14.9 % (11.6-17.2) Platelet Count 56 TH/MM3 (150-450) Mean Platelet Volume 8.9 FL (7.0-11.0) Neutrophils (%) (Auto) 80.8 % (16.0-70.0) Lymphocytes (%) (Auto) 6.9 % (9.0-44.0) Monocytes (%) (Auto) 11.8 % (0.0-8.0) Eosinophils (%) (Auto) 0.1 % (0.0-4.0) Basophils (%) (Auto) 0.4 % (0.0-2.0) Neutrophils # (Auto) 7.0 TH/MM3 (1.8-7.7) Lymphocytes # (Auto) 0.6 TH/MM3 (1.0-4.8) Monocytes # (Auto) 1.0 TH/MM3 (0-0.9) Eosinophils # (Auto) 0.0 TH/MM3 (0-0.4) Basophils # (Auto) 0.0 TH/MM3 (0-0.2) CBC Comment AUTO DIFF Differential Comment AUTO DIFF CONFIRMED Platelet Estimate LOW (NORMAL) Platelet Morphology Comment ENLARGED (NORMAL) Ovalocytes 1+ (NORMAL) Prothrombin Time 12.4 SEC (9.8-11.6) Prothromb Time International Ratio 1.2 RATIO Activated Partial Thromboplast Time 27.1 SEC (24.3-30.1) Blood Urea Nitrogen 29 MG/DL (7-18) Creatinine 1.26 MG/DL (0.60-1.30) Random Glucose 212 MG/DL (74-106) Calcium Level 8.1 MG/DL (8.5-10.1) Potassium Level 5.1 MEQ/L (3.5-5.1) Chloride Level 113 MEQ/L (98-107) Carbon Dioxide Level 22.4 MEQ/L (21.0-32.0) Anion Gap 8 MEQ/L (5-15) Estimat Glomerular Filtration Rate 55 ML/MIN (>89) Test 01/09/18 06:15 Blood Gas Puncture Site ART LINE Blood Gas Patient Temperature 98.6 Blood Gas HCO3 21 mmol/L (22-26) Blood Gas Base Excess -3.9 mmol/L (-2-2) Blood Gas Oxygen Saturation 93 % (90-100) Arterial Blood pH 7.33 (7.380-7.420) Arterial Blood Partial Pressure CO2 41 mmHg (38-42) Arterial Blood Partial Pressure O2 78 mmHg (61-120) Arterial Blood Oxygen Content 13.4 Vol % (12.0-20.0) Arterial Blood Carboxyhemoglobin 1.8 % (0-4) Arterial Blood Methemoglobin 1.0 % (0-2) Blood Gas Hemoglobin 10.1 G/DL (12.0-16.0) Oxygen Delivery Device VENTILATOR Blood Gas Ventilator Setting PRVC/AC18/600/5 PEEP Blood Gas Inspired Oxygen 40 % (Chelo Rice) Result Diagram: 01/09/18 0400 01/09/18 0400 Microbiology Microbiology Date/Time Source Procedure Growth Status 01/08/18 14:39 Cerebral Spinal Fluid Shunt Fluid Fungal Smear - Final NO FUNGAL ELEMENTS SEEN. Resulted 01/08/18 14:39 Cerebral Spinal Fluid Shunt Fluid Fungal Culture Pending Resulted 01/08/18 14:39 Cerebral Spinal Fluid Shunt Fluid Acid Fast Stain Pending Received 01/08/18 14:39 Cerebral Spinal Fluid Shunt Fluid Mycobacterial Culture Pending Received 01/08/18 14:39 Cerebral Spinal Fluid Shunt Fluid Gram Stain - Final Resulted 01/08/18 14:39 Cerebral Spinal Fluid Shunt Fluid CSF Culture - Preliminary NO GROWTH IN 24 HOURS. Resulted Imaging Last Impressions Maxillofacial CT 01/08/18 1226 Signed Impressions: Service Date/Time: January 12:34 - CONCLUSION: 1. There is a large hematoma evident surrounding and involving the left orbit. 2. No acute facial fracture identified. Maxi Ann MD Head CT 01/08/18 1226 Signed Impressions: Service Date/Time: January 12:34 - CONCLUSION: 1. Grossly abnormal examination demonstrating a 4.0 x 2.4 cm interparenchymal hemorrhage within the left the occipital cortex. There is a 1.5 cm subdural hemorrhage along the entire left hemisphere. There is 7 mm of left to right falcine shift and diffuse edema throughout the left hemisphere as well. There is effacement of the perimesencephalic cisterns consistent with transtentorial herniation. There are edematous changes evident within the cerebellum and brainstem. Findings were discussed with Dr. Thornton. Maxi Ann MD Chest X-Ray 01/08/18 1226 Signed Impressions: Service Date/Time: January 12:26 - CONCLUSION: Bilateral infiltrates. Right-sided volume loss. Small pleural effusion on the right. No pneumothorax seen. Orlando Bradley MD Cervical Spine CT 01/08/18 1226 Signed Impressions: Service Date/Time: January 12:34 - CONCLUSION: 1. Degenerative changes throughout cervical spine as above. No acute cervical fracture identified. Maxi Ann MD Procedures 4/5 right subclavian central line placement 4/5 left frontotemporal parietal decompressive craniectomy, evacuation of subdural hematoma, debridement of left temporal brain contusion. (Chelo Rice) Patient/Family Conference Family Conference Time (mins): 30 Family Conference Location: Bedside Issues Discussed: Met with patient , daughter at bedside discussion included: * Palliative care role, purpose, approach * Additional medical, psychosocial, and spiritual history * Patients general health, functional status, leading up to the current hospitalization * Patient/family understanding of the current medical problems * Patient/family understanding of prognosis; review patient very high risk for becoming unstable, clinical deterioration, possible cardiac events, may not be survivable * Patients goals of care as best understood from advance directives and/or conversations and/or values * Current medical treatment options and benefits/burdens of those options * Review of CODE STATUS- and daughter still processing, patient to be a full code by default * Questions answered to the best of my ability * Palliative care contact information provided Briefly review with patient prehospital course, and recent medical/social history. He was cognitively sharp independent with ADLs though having increased physical difficulty secondary to severe pain in his back, recent follow-up with his provider, was ordered for PET scan found to have spinal metastasis from previous prostate cancer. He has not undergone any treatment for this as of yet. Gently explore hospital course thus far, including emergent nature of surgery as a lifesaving measure, the patient still remains high risk for ongoing instability and decline and possible . Review of maximized treatments in place. Gently explored what resuscitation entails and benefits/burdens, likely outcomes. and daughter still processing. No changes to treatment plan at this time. Provided with palliative contact information. (Chelo Rice) Assessment and Plan Disease Oriented Problem List: (1) Subdural hemorrhage Comment: c/p decompressive craniectomy (2) Intracranial bleed Comment: c/p decompressive craniectomy (3) Diabetes (4) Prostate cancer Comment: Reported metastases to back/spine not clear if this is bone? (5) Intraparenchymal hemorrhage of brain Symptom Scale: (1) Dyspnea 0-10 Scale: Unable to quantify (2) Pain 0-10 Scale: Unable to quantify Pertinent Non-Medical Issues Psychosocial: Retired, . Lives at home with his . Supported by 2 adult children. 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 Per [place] statutes his would be appropriate legal proxy. Ethical issues impacting care: No ethical issues identified . Important Contacts Traci [phone], . Prognosis This 77-year-old was admitted with significant subdural hemorrhage requiring emergent craniectomy. ICPs remain elevated, brain stem reflexes now absent. Poor prognosis for survival. . Code Status: Full Code Plan * Legal decision maker:Patient due to clinical condition unable to participate in decision-making. Not likely he will regain ability to participate. would be appropriate proxy per [place] statutes. * Goals: and daughter still processing conditions, prognosis. No changes to treatment plan at this time. * CODE STATUS: Full code by default * SYMPTOMS: --Dyspnea. Emergently intubated in the field for respiratory failure. Remains on mechanical vent. No spontaneous respirations over ventilator rate. --Pain-reports patient with some recent though chronic back pain, newly found to be secondary to spinal metastasis. Occasionally utilized Lortab in the home setting with slight relief, pain generally persistent. Limited patient 's activity level. Given the extent of the brain damage he has sustained unlikely that he is processing pain however potential sources would include bedbound status and invasive treatments currently in place. Currently on Diprivan, fentanyl. Nonresponsive/no signs or symptoms of pain or distress. * Palliative care will continue to follow during hospital course as condition evolves, to assist patient/decision-maker with understanding of medical conditions, weighing benefits/burdens of treatment options, for clarification of goals of treatment. Additionally will assist with any symptoms of palliative concern (Chelo Rice) Time Spent Total Floor Time (mins): 70 (Review of chart, discussion with nursing, exam, meeting with family) (Chelo Rice) Thank you for the opportunity to participate in the care of Mr. Torres. (Chelo Rice) Attestation To help prompt me to consider important information that might be impacting today's encounter and assessment, information from prior notes written by myself or my colleagues may have been "brought forward" into today's note. My signature on this note, however, is an attestation that I personally performed the exam, history, and/or decision-making noted today, and, unless otherwise indicated, the interactions with patient, family, and staff as well as the review of records all occurred today. I also attest that the listed assessment and stated plan reflect my best clinical judgment today based on the combination of historical information, prior notes, and today's exam/ interactions. When time spent is documented, it refers only to time spent today by the signer, or if indicated, combined time spent today by collaborating physician/nurse practitioner. (Chelo Rice) Collaborating MD Comments Chart reviewed. Case discussed with palliative care MANAGER VISUAL. Above AXEL note reviewed and I concur. . (Bridger Arango MD) Chelo Rice Jan 09, 2018 10:42 Bridger Arango MD Jan 12, 2018 05:51
--- NOTE | 2018-01-09 13:53 | OTSOAPIP ---
TIME SESSION COMPLETED: AM TREATMENT TIME: 0 MINS. CHART REVIEWED. INTERDISCIPLINARY COMMUNICATION: NURSING REQUESTED TO HOLD TREATMENT TODAY. PLAN: WILL SEE PATIENT NEXT TREATMENT DAY IF AVAILABLE Therapist: LUKAS RUBIO/Anais Signature on file
--- NOTE | 2018-01-09 17:31 | RADRPT ---
EXAM DATE/TIME: 01/09/2018 16:43 [facility] COMPARISON: CT BRAIN W/O CONTRAST, January 08, 2018, 12:34. INDICATIONS : F/U subdural hemorrhage. RADIATION DOSE: 56.35 CTDIvol (mGy) ; Tabletop CT Head MEDICAL HISTORY : Non-responsive. SURGICAL HISTORY : Non-responsive. ENCOUNTER: Subsequent ACUITY: 1 day PAIN SCALE: Non-responsive LOCATION: cranial TECHNIQUE: Multiple contiguous axial images were obtained of the head. Using automated exposure control and adj ustment of the mA and/or kV according to patient size, radiation dose was kept as low as reasonably a chievable to obtain optimal diagnostic quality images. DICOM format image data is available electro nically for review and comparison. FINDINGS: Interval decompressive parietal craniotomy with surgical drain in placement of right frontal ventricu lostomy which terminates in the left frontal horn. Small amount pneumocephalus. There is extensive boyer barachnoid blood products with evolving intraparenchymal hemorrhage in the posterior left parietal mi d convexity is which now measures 5.9 x 2.1 cm in comparison to 4.8 x 2.4 cm on prior exam. Blood pro ducts extend to the ventricles and along the dura small amount pneumocephalus. Approximately 7 mm lef t to right subfalcine herniation with effacement of the basilar cisterns. There is extensive loss of hurst-white matter differentiation and hypodensity throughout the left cerebral hemisphere. There is a lso indistinct hurst-white matter differentiation throughout the right hemisphere. Remainder of exam i s unchanged. CONCLUSION: 1. Interval decompressive parietal craniotomy with surgical drain in right frontal ventriculostomy in place. 2. Progression of subarachnoid hemorrhage with intraventricular hemorrhage and enlarging left parieta l intraparenchymal hemorrhage now measuring 5.9 x 2.1 cm in comparison to 2.4 cm on prior exam. 3. Diffusely hypodense left cerebral hemisphere with loss of hurst-white differentiation as well as he terogeneously indistinct hurst-white differentiation throughout the right hemisphere. Findings are con cerning for cerebral infarction, particularly on the left. 4. Stable 7 mm left to right subfalcine herniation with persistent effacement of the basilar cisterns . Salas Sams MD on January 09, 2018 at 16:59 Board Certified Radiologist. This report was verified electronically.
--- NOTE | 2018-01-09 21:39 | HHI.CCPN ---
Subjective Brief History 77-year-old male who fell at home under unknown circumstances and became unconscious. He was transferred initially to [facility] intubated ventilated and transferred to our institution for further care. [place] Coma Scale on arrival is 3 and remained so throughout. Patient is diagnosed with left CVA and subdural hemorrhage, a large parieto- occipital hemorrhage and contusion. 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 Rivera and will go ahead with a cerebral flow study tomorrow Discussed with and patient is now DNR Palliative care consultation and care greatly appreciated Objective Vital Signs Date Time Temp Pulse Resp B/P (MAP) Pulse Ox O2 Delivery O2 Flow Rate FiO2 01/09/18 19:23 100 70 01/09/18 18:00 76 01/09/18 16:00 98.4 18 107/58 (74) 01/08/18 16:45 Mechanical Ventilator 01/08/18 13:07 15.00 Intake and Output 01/09/18 01/09/18 01/10/18 08:00 16:00 00:00 Intake Total 2505 ml 1000 ml Output Total 1133 ml 2036 ml Balance 1372 ml 1000 ml -2036 ml Result Diagram: 01/09/18 0400 01/09/18 1800 Other Results Laboratory Tests Test 01/08/18 21:35 01/09/18 06:15 Blood Gas Puncture Site ART LINE ART LINE Blood Gas Patient Temperature 98.6 98.6 Blood Gas HCO3 21 mmol/L (22-26) 21 mmol/L (22-26) Blood Gas Base Excess -3.6 mmol/L (-2-2) -3.9 mmol/L (-2-2) Blood Gas Oxygen Saturation 96 % (90-100) 93 % (90-100) Arterial Blood pH 7.35 (7.380-7.420) 7.33 (7.380-7.420) Arterial Blood Partial Pressure CO2 40 mmHg (38-42) 41 mmHg (38-42) Arterial Blood Partial Pressure O2 127 mmHg (61-120) 78 mmHg (61-120) Arterial Blood Oxygen Content 8.9 Vol % (12.0-20.0) 13.4 Vol % (12.0-20.0) Arterial Blood Carboxyhemoglobin 1.6 % (0-4) 1.8 % (0-4) Arterial Blood Methemoglobin 1.3 % (0-2) 1.0 % (0-2) Blood Gas Hemoglobin 6.3 G/DL (12.0-16.0) 10.1 G/DL (12.0-16.0) Oxygen Delivery Device VENTILATOR VENTILATOR Blood Gas Ventilator Setting PRVC/AC18/600/ PRVC/AC18/600/5 PEEP Blood Gas Inspired Oxygen 60 % 40 % Imaging Last [address] 01/09/18 0000 Signed Impressions: Service Date/Time: Tuesday, January 09, 2018 16:43 - CONCLUSION: 1. Interval decompressive parietal craniotomy with surgical drain in right frontal ventriculostomy in place. 2. Progression of subarachnoid hemorrhage with intraventricular hemorrhage and enlarging left parietal intraparenchymal hemorrhage now measuring 5.9 x 2.1 cm in comparison to 2.4 cm on prior exam. 3. Diffusely hypodense left cerebral hemisphere with loss of hurst-white differentiation as well as heterogeneously indistinct hurst-white differentiation throughout the right hemisphere. Findings are concerning for cerebral infarction, particularly on the left. 4. Stable 7 mm left to right subfalcine herniation with persistent effacement of the basilar cisterns. Salas Sams MD Exam [facility] Patient remains intubated ventilated [place] Coma Scale 3 ICP 30-40 mmHg Pupils are fixed and dilated by 5 mm Patient has no gag or cough reflex Remains on neuroprotective measures including propofol and fentanyl This patient has no chance of recovery and brain and herniation is imminent Discussed with Dr. Rivera and will go ahead with a cerebral flow study tomorrow Discussed with and patient is now DNR Palliative care consultation and care greatly appreciated Hemodynamic/Cardiac Hemodynamically patient is stable Pulmonary/Respiratory Bilateral breath sounds fully ventilatory dependent on assist control mode Abdomen/GI Nutrition Abdomen soft Renal/I&O Renal function preserved and sodium 1 54 mEq/L Assessment and Plan Attestation This patient is devastating brain injury and brain is imminent Critical care time 35 minutes Donnie Gillis MD Jan 09, 2018 21:39
[2018-01-09] MEDS: fentaNYL 2,500 MCG/NS 250 ML IV PRN (22:47)
[2018-01-10] VITALS (13 sets, daily range): BP systolic 93–166; BP diastolic 39–67; PULSE 80–99; RESP 12–18; TEMP 96–98.7; O2SAT 94–100
[2018-01-10] MEDS: NOREPINEPHRINE INJ 4 MG in SODIUM CHLOR 0.9% 250 ML INJ 246 ML IV PRN ×3 (00:42→13:54)
[2018-01-10] MEDS: levETIRAcetam INJ 500 MG in SODIUM CHLORIDE 0.9% INJ 100 ML IV SCH (02:35)
[2018-01-10] MEDS: 3% SALINE INJ 500 ML IV PRN (02:37)
[2018-01-10] MEDS: CHLORHEXIDINE GLUCONATE 2 % 1 PACK (2 CLOTHS) TOP SCH (03:28)
--- NOTE | 2018-01-10 04:24 | RADRPT ---
EXAM DATE/TIME: 01/10/2018 03:30 [facility] COMPARISON: CHEST SINGLE AP, January 08, 2018, 19:51. INDICATIONS : Infiltrates. MEDICAL HISTORY : Non-responsive. SURGICAL HISTORY : Non-responsive. ENCOUNTER: Subsequent ACUITY: 3 days PAIN SCORE: Non-responsive. LOCATION: Bilateral chest FINDINGS: Single AP view of the chest. Endotracheal tube and nasogastric tube remain in place. Right subclavian central venous catheter also remains in place. Patchy bilateral pulmonary opacity unchanged. No evid ence of pleural effusion or pneumothorax. CONCLUSION: No significant change. Persistent patchy bilateral pulmonary opacity. Sharad Turner MD on January 10, 2018 at 4:21 Board Certified Radiologist. This report was verified electronically.
[2018-01-10] MEDS: MANNITOL 12.5 GM/50 ML VIAL IV SCH ×2 (05:13→08:34)
[2018-01-10] MEDS ORDERED: ALBUMIN 5% INJ 500 ML IV ONE (05:15)
[2018-01-10 06:09] LABS: HEMATOCRIT 27.9 % (39.0-51.0); HEMOGLOBIN 9.8 GM/DL (13.0-17.0); MEAN CELL VOLUME 84.9 FL (80.0-100.0); MEAN CORPUSCULAR HEMOGLOBIN 29.9 PG (27.0-34.0); MEAN CORPUSCULAR HGB CONC 35.1 % (32.0-36.0); MEAN PLATELET VOLUME 9.2 FL (7.0-11.0); PLATELET COUNT 35 TH/MM3 (150-450); RED BLOOD COUNT 3.29 MIL/MM3 (4.50-5.90); RED CELL DISTRIBUTION WIDTH 15.9 % (11.6-17.2); WHITE BLOOD COUNT 9.8 TH/MM3 (4.0-11.0)
[2018-01-10 06:31] LABS: CALCIUM 8.8 MG/DL (8.5-10.1); CREATININE 1.41 MG/DL (0.60-1.30)
[2018-01-10] MEDS: PANTOPRAZOLE SOD 40 MG DELAYED RELEASE TAB PO SCH (08:33)
[2018-01-10] MEDS: CHLORHEXIDINE 0.12% (ORAL KIT) 15 ML CUP MT SCH (08:33)
[2018-01-10] MEDS: DOCUSATE SODIUM 100 MG CAP PO SCH (08:57)
[2018-01-10] MEDS: PANTOPRAZOLE SODIUM 40 MG VIAL IVP SCH (08:57)
[2018-01-10] MEDS: fentaNYL 2,500 MCG/NS 250 ML IV PRN (08:57)
[2018-01-10] MEDS: PROPOFOL 1000 MG/100 ML INJ 100 ML IV PRN (09:01)
--- NOTE | 2018-01-10 09:38 | RADRPT ---
EXAM DATE/TIME: 01/10/2018 08:00 [facility] COMPARISON: No previous studies available for comparison. INDICATIONS : Right arm swelling. MEDICAL HISTORY : Prostate cancer. Diabetic. SURGICAL HISTORY : Left craniectomy. ENCOUNTER: Initial ACUITY: 1 day PAIN SCORE: Non-responsive LOCATION: Right arm. FINDINGS: There is spontaneous flow documented in the brachial, basilic, cephalic, axillary, and subclavian vei ns. The vessels are compressible and augmentation response is documented. No filling defects are se en. The flow is phasic with respiration. Direction of flow in the jugular vein is caudal. CONCLUSION: Normal examination. Gauri Blank MD on January 10, 2018 at 9:34 Board Certified Radiologist. This report was verified electronically.
--- NOTE | 2018-01-10 09:44 | HHI.NSPN ---
(Abe Alicea) History Chief Complaint: Large L occipital hemorrhagic stroke followed by a subsequent traumatic SDH (Abe Alicea) Interval History Mr. Torres is a 77 year old male who underwent emergent left frontal temporal parietal decompressive craniectomy with evacuation of large subdural hematoma 01/08/18. His CT Brain on arrival showed large left subdural hematoma, left occipital intraparenchymal hemorrhage with 7 mm midline shift. 01/09: currently intubated and with sedative drips. ventriculostomy in place, ICPs reported in the 40's. pupils now dilated, fixed without cough and gag reflexes. 01/10: Pt sedated with Diprivan and fentanyl drips. He is intubated. He is on a Levophed drip. Pupils 5 mm bilaterally. (Abe Alicea) System Review Comments Unable to obtain given clinical condition. (Abe Alicea) Exam Results Vital Signs Date Time Temp Pulse Resp B/P (MAP) Pulse Ox O2 Delivery O2 Flow Rate FiO2 01/10/18 08:47 98 45 01/10/18 08:00 96.0 93 18 153/61 (91) Automatic Cuff 01/08/18 16:45 Mechanical Ventilator 01/08/18 13:07 15.00 Intake and Output 01/10/18 01/10/18 01/11/18 08:00 16:00 00:00 Intake Total 4266 ml Output Total 2470 ml Balance 1796 ml (Abe Alicea) Physical Examination General: Patient sedated on Diprivan and fentanyl in the ICU. Eyes: Pupils are 5 mm bilaterally nonreactive bilaterally. Respiratory: Patient is intubated. PRVC A/C rate 18. Peep 5. FiO2 50%. Heart: Normal sinus rhythm. Norepinephrine drip. Abdomen: Soft. Diminished bowel sounds. Skin: Left craniectomy site full. Incision clean and dry. He has left periorbital ecchymosis and edema. SCDs are in place. Muscle: Patient not following commands for muscle testing. Neurologic: Patient sedated on Diprivan and fentanyl drips. He does not open his eyes to pain. Pupils are 5 mm bilaterally and nonreactive bilaterally. Not following commands. Ventriculostomy drain at 0 cm H2O. Nurses report ICPs 67. (Abe Alicea) Physical Examination Intubated and when sedation is withheld does not open eyes. Pupils are nonreactive and fixed and dilated bilaterally. Negative corneal reflex, negative doll's reflex, negative cold caloric response , negative gag reflex, negative cough reflex, No motor response to painful stimulation. No spontaneous respirations noted over the ventilator. (Campos Barbour MD) Lab, Micro, Other Results Last Impressions Chest X-Ray 01/10/18 0600 Signed Impressions: Service Date/Time: Wednesday, January 10, 2018 03:30 - CONCLUSION: No significant change. Persistent patchy bilateral pulmonary opacity. Sharad Turner MD Head CT 01/09/18 0000 Signed Impressions: Service Date/Time: Tuesday, January 09, 2018 16:43 - CONCLUSION: 1. Interval decompressive parietal craniotomy with surgical drain in right frontal ventriculostomy in place. 2. Progression of subarachnoid hemorrhage with intraventricular hemorrhage and enlarging left parietal intraparenchymal hemorrhage now measuring 5.9 x 2.1 cm in comparison to 2.4 cm on prior exam. 3. Diffusely hypodense left cerebral hemisphere with loss of hurst-white differentiation as well as heterogeneously indistinct hurst-white differentiation throughout the right hemisphere. Findings are concerning for cerebral infarction, particularly on the left. 4. Stable 7 mm left to right subfalcine herniation with persistent effacement of the basilar cisterns. Salas Sams MD Maxillofacial CT 01/08/18 1226 Signed Impressions: Service Date/Time: January 12:34 - CONCLUSION: 1. There is a large hematoma evident surrounding and involving the left orbit. 2. No acute facial fracture identified. Maxi Ann MD Cervical Spine CT 01/08/18 1226 Signed Impressions: Service Date/Time: January 12:34 - CONCLUSION: 1. Degenerative changes throughout cervical spine as above. No acute cervical fracture identified. Maxi Ann MD Laboratory Tests Test 01/09/18 12:15 01/09/18 18:00 01/10/18 04:20 Sodium Level 153 MEQ/L 154 MEQ/L 161 MEQ/L Serum Osmolality 328 MOSM/KG 335 MOSM/KG 356 MOSM/KG White Blood Count 9.8 TH/MM3 Red Blood Count 3.29 MIL/MM3 Hemoglobin 9.8 GM/DL Hematocrit 27.9 % Mean Corpuscular Volume 84.9 FL Mean Corpuscular Hemoglobin 29.9 PG Mean Corpuscular Hemoglobin Concent 35.1 % Red Cell Distribution Width 15.9 % Platelet Count 35 TH/MM3 Mean Platelet Volume 9.2 FL Blood Urea Nitrogen 28 MG/DL Creatinine 1.41 MG/DL Random Glucose 183 MG/DL Calcium Level 8.8 MG/DL Potassium Level 3.8 MEQ/L Chloride Level 133 MEQ/L Carbon Dioxide Level 20.0 MEQ/L Anion Gap 8 MEQ/L Estimat Glomerular Filtration Rate 49 ML/MIN (Abe Alicea) Medical Decision Making Impression and Plan A: 77 year old male s/p emergent left frontal temporal parietal decompressive craniectomy with evacuation of large subdural hematoma, placement of ventriculostomy drain on 01/08/18 CT Brain on arrival showed large left subdural hematoma, left occipital intraparenchymal hemorrhage with 7 mm midline shift Pt with persistent high ICP. Follow up CT with worsening findings. Plan Plan Plan Remarks cont ventriculostomy draining, cont hyperosmotic tx, end tidal co2 monitoring, sedation for ICP control cont neuro checks trauma and critical care management (Abe Alicea) Attending Statement The exam, history, and the medical decision-making described in the above note were completed with the assistance of the mid-level provider. I reviewed and agree with the findings presented. I attest that I had a [id number] encounter with the patient on the same day, and personally performed and documented my assessment and findings in the medical record. Clinical exam is consistent with the brain with loss of brain stem reflexes. We will obtain cerebral blood flow study to confirm clinical brain . (Campos Barbour MD) Abe Alicea Jan 10, 2018 09:44 Campos Barbour MD Jan 10, 2018 11:24
--- NOTE | 2018-01-10 14:13 | RADRPT ---
EXAM DATE/TIME: 01/10/2018 12:07 [facility] COMPARISON: No previous studies available for comparison. INDICATIONS : Trauma. Patient fall. DOSE: 25.2 mCi Tc99m DTPA IV The diagnosis of brain is clinical and the results of this test should be taken in the content of clinical and electrocephalographic data. MEDICAL HISTORY : Spine cancer. SURGICAL HISTORY : None. ENCOUNTER: Initial ACUITY: 2 days PAIN SCALE: Non-responsive LOCATION: Head. TECHNIQUE: Anterior dynamic imaging as well as delayed static imaging. FINDINGS: No radionuclide is seen in the intracranial arteries or veins. Signed report CONCLUSION: Absent intracranial flow characteristic of brain . Rell Lopez MD on January 10, 2018 at 14:06 Board Certified Radiologist. This report was verified electronically.
--- NOTE | 2018-01-10 16:47 | HHI.CCPN ---
Subjective Brief History 77-year-old male who fell at home under unknown circumstances and became unconscious. He was transferred initially to [facility] intubated ventilated and transferred to our institution for further care. [place] Coma Scale on arrival is 3 and remained so throughout. Patient is diagnosed with left CVA and subdural hemorrhage, a large parieto- occipital hemorrhage and contusion. 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 Rivera and will go ahead with a cerebral flow study tomorrow Discussed with and patient is now DNR Palliative care consultation and care greatly appreciated 01/10/2018 Patient with no reflexes no change in neurologic status Fixed and dilated pupils Brain flow study today is positive and there is no flow present in the brain therefore the is confirmed Objective Vital Signs Date Time Temp Pulse Resp B/P (MAP) Pulse Ox O2 Delivery O2 Flow Rate FiO2 01/10/18 14:00 99 01/10/18 13:54 102/39 01/10/18 13:01 99 45 01/10/18 12:00 96.5 12 01/08/18 16:45 Mechanical Ventilator 01/08/18 13:07 15.00 Intake and Output 01/10/18 01/10/18 01/11/18 08:00 16:00 00:00 Intake Total 4266 ml 725 ml Output Total 2470 ml Balance 1796 ml 725 ml Result Diagram: 01/10/18 0420 01/10/18 1206 Imaging Last 24 hours Impressions Chest X-Ray 01/10/18 0600 Signed Impressions: Service Date/Time: Wednesday, January 10, 2018 03:30 - CONCLUSION: No significant change. Persistent patchy bilateral pulmonary opacity. Sharad Turner MD Upper Extremity Ultrasound 01/10/18 0000 Signed Impressions: Service Date/Time: Wednesday, January 10, 2018 08:00 - CONCLUSION: Normal examination. Gauri Blank MD Brain Flow Nuclear Medicine 01/10/18 0000 Signed Impressions: Service Date/Time: Wednesday, January 10, 2018 12:07 - CONCLUSION: Absent intracranial flow characteristic of brain . MD Elis Meng Slobodan MD Jan 10, 2018 16:47
--- NOTE | 2018-01-12 16:49 | HHI.DS ---
Summary Note Date of : Jan 10, 2018 Time Of : 1402 Admission Date Jan 08, 2018 at 12:46 Admitting Diagnosis intracranial bleed Diagnosis at Time of : (1) Brain ICD Code: G93.82 - Brain (2) Subdural hemorrhage ICD Code: I62.00 - Nontraumatic subdural hemorrhage, unspecified (3) Intraparenchymal hemorrhage of brain ICD Code: I61.9 - Nontraumatic intracerebral hemorrhage, unspecified Brief History 70-year-old gentleman who has some sort of cancer history was found wandering the house for a few hours by his . She said earlier in the morning he told her he could not walk the dog because he had fallen so he went in to lie down. She called 911 when he went to bed and did not wake up. On arrival per EMS he was agonal breathing they intubated him and took him to [facility]. At [facility] they saw a left periorbital hematoma, called a trauma alert and sent him to [place]. Patient arrived immobilized on a transport board with cervical collar in place he was intubated with a [place] Coma Scale of 3T on propofol. CBC/BMP: 01/10/18 0420 01/10/18 1206 Significant Findings Laboratory Tests Test 01/09/18 18:00 01/10/18 04:20 01/10/18 12:06 Sodium Level 154 MEQ/L (136-145) 161 MEQ/L (136-145) 167 MEQ/L (136-145) Serum Osmolality 335 MOSM/KG (275-295) 356 MOSM/KG (275-295) 363 MOSM/KG (275-295) Red Blood Count 3.29 MIL/MM3 (4.50-5.90) Hemoglobin 9.8 GM/DL (13.0-17.0) Hematocrit 27.9 % (39.0-51.0) Platelet Count 35 TH/MM3 (150-450) Blood Urea Nitrogen 28 MG/DL (7-18) Creatinine 1.41 MG/DL (0.60-1.30) Random Glucose 183 MG/DL (74-106) Chloride Level 133 MEQ/L (98-107) Carbon Dioxide Level 20.0 MEQ/L (21.0-32.0) Estimat Glomerular Filtration Rate 49 ML/MIN (>89) Imaging Last Impressions Maxillofacial CT 01/08/186 Signed Impressions: Service Date/Time: January 12:34 - CONCLUSION: 1. There is a large hematoma evident surrounding and involving the left orbit. 2. No acute facial fracture identified. Maxi Ann MD Head CT 01/08/18 1226 Signed Impressions: Service Date/Time: January 12:34 - CONCLUSION: 1. Grossly abnormal examination demonstrating a 4.0 x 2.4 cm interparenchymal hemorrhage within the left the occipital cortex. There is a 1.5 cm subdural hemorrhage along the entire left hemisphere. There is 7 mm of left to right falcine shift and diffuse edema throughout the left hemisphere as well. There is effacement of the perimesencephalic cisterns consistent with transtentorial herniation. There are edematous changes evident within the cerebellum and brainstem. Findings were discussed with Dr. Thornton. Maxi Ann MD Chest X-Ray 01/08/181225 Signed Impressions: Service Date/Time: January 12:26 - CONCLUSION: Bilateral infiltrates. Right-sided volume loss. Small pleural effusion on the right. No pneumothorax seen. Orlando Bradley MD Cervical Spine CT 01/08/186 Signed Impressions: Service Date/Time: January 12:34 - CONCLUSION: 1. Degenerative changes throughout cervical spine as above. No acute cervical fracture identified. Maxi Ann MD Hospital Course 01/08/18 77-year-old male who fell at home under unknown circumstances and became unconscious. He was transferred initially to [facility] intubated ventilated and transferred to our institution for further care. [place] Coma Scale on arrival is 3 and remained so throughout. Patient is diagnosed with left CVA and subdural hemorrhage, a large parieto- occipital hemorrhage and contusion. 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 Rivera and will go ahead with a cerebral flow study tomorrow Discussed with and patient is now DNR Palliative care consultation and care greatly appreciated 01/10/2018 Patient with no reflexes no change in neurologic status Fixed and dilated pupils Brain flow study today is positive and there is no flow present in the brain therefore the is confirmed ICPs remain elevated, brain stem reflexes absent. Patient declared by Dr Gillis and Dr Barbour. Patient withdrawn from ventilator and life sustaining measures. Family at bedside. Patient pronounced at 1402 on 01/10/18. Honorio Crandall Jan 12, 2018 16:49
== END 2018-01-10 16:06 | disposition expired | DRG 25 ==
LOC: NEPI 12:24 → EDBD 12:46 → NEDA 12:46 → N03B 16:51
PROVIDERS: ADMIT Surgery; ATTEND Surgery
PROC: 00C40ZZ Extirpation of Matter from Intracranial Subdural Space, Open Approach (ICD-10-PCS; 2018-01-08)
PROC: 00N00ZZ Release Brain, Open Approach (ICD-10-PCS; 2018-01-08)
PROC: 0T9B70Z Drainage of Bladder with Drainage Device, Via Natural or Artificial Opening (ICD-10-PCS; 2018-01-08)
PROC: 5A1945Z Respiratory Ventilation, 24-96 Consecutive Hours (ICD-10-PCS; 2018-01-08)
PROC: 30233K1 Transfusion of Nonautologous Frozen Plasma into Peripheral Vein, Percutaneous Approach (ICD-10-PCS; 2018-01-08)
PROC: 30233N1 Transfusion of Nonautologous Red Blood Cells into Peripheral Vein, Percutaneous Approach (ICD-10-PCS; 2018-01-08)
PROC: 30233R1 Transfusion of Nonautologous Platelets into Peripheral Vein, Percutaneous Approach (ICD-10-PCS; 2018-01-08)
PROC: 05H533Z Insertion of Infusion Device into Right Subclavian Vein, Percutaneous Approach (ICD-10-PCS; 2018-01-08)
PROC: 009630Z Drainage of Cerebral Ventricle with Drainage Device, Percutaneous Approach (ICD-10-PCS; principal; 2018-01-08 12:57)
DX: S06.2X9A Diffuse traumatic brain injury with loss of consciousness of unspecified duration, initial encounter (principal); J96.01 Acute respiratory failure with hypoxia; I63.9 Cerebral infarction, unspecified; J96.02 Acute respiratory failure with hypercapnia; G93.40 Encephalopathy, unspecified; C79.51 Secondary malignant neoplasm of bone; S06.5X9A Traumatic subdural hemorrhage with loss of consciousness of unspecified duration, initial encounter; I95.9 Hypotension, unspecified; S06.1X9A Traumatic cerebral edema with loss of consciousness of unspecified duration, initial encounter; S00.12XA Contusion of left eyelid and periocular area, initial encounter; C61 Malignant neoplasm of prostate; G93.2 Benign intracranial hypertension; I46.9 Cardiac arrest, cause unspecified; R00.1 Bradycardia, unspecified; E11.9 Type 2 diabetes mellitus without complications; Z80.9 Family history of malignant neoplasm, unspecified; Y92.009 Unspecified place in unspecified non-institutional (private) residence as the place of occurrence of the external cause; W19.XXXA Unspecified fall, initial encounter; Z91.83 Wandering in diseases classified elsewhere; E78.5 Hyperlipidemia, unspecified
CPT/HCPCS: 36430; 36556; 70450; 70486; 71045; 72125; 78606; 80048; 82805; 82945; 83930; 84157; 84295; 85025; 85027; 85610; 85730; 86850; 86900; 86901; 86920; 86927; 87015; 87070; 87102; 87116; 87205; 87206; 87641; 88304; 89051; 93971; 94002; 94003; 94770; 96374; 96375; 99291; A9539; C9113; G0390; J0461; J0690; J1580; J1953; J2150; J2370; J3010; J3480; J7050; L0150; P9016; P9017; P9035; P9045